=== PATIENT | female | born 1990 | race Caucasian/White ===

== ENCOUNTER 2016-12-11 15:18 | Day surgery (SDC) | payer OTHER ==
[2016-12-11] VITALS (16 sets, daily range): BP systolic 96–131; BP diastolic 65–83; PULSE 70–123; RESP 16–20; TEMP 97.3–98.6; O2SAT 95–100; Ht 167.6 cm; Wt 66.7 kg
[~2016-12-11] VITALS: Ht 167.6 cm; Wt 66.7 kg
--- NOTE | 2016-12-11 15:25 | NUR ---
Admit Ambulatory to room 109 with mother. Alert and oriented x3. O2 RA. Seda Rodriguez RN notified of patient's arrival.
--- OUTSIDE RECORDS SUMMARY | 2016-12-11 15:27 | XMS REPORT | Continuity of Care Document ---
Author Author [facility] Organization [facility] Address Unknown Phone Unavailable Allergies Active Description Code Type Severity Reaction Onset Reported/Identified Relationship to Patient Clinical Status Yes Sulfa (Sulfonamide Antibiotics) 491 3 N/A N/A Yes sulfamethoxazole 2827 1 N/A N/A Yes trimethoprim 2873 1 N/A N/A Medications Problems Date Dx Coded Attending Type Code Diagnosis Diagnosed By 11/01/2015 W S93.601A Right foot sprain, initial encounter 01/08/2016 W S93.601A Right foot sprain, initial encounter 11/20/2016 FRANNIE MACK I350 Nonrheumatic aortic (valve) stenosis 11/20/2016 FRANNIE MACK N946 Dysmenorrhea, unspecified 11/20/2016 FRANNIE MACK R102 Pelvic and perineal pain 11/20/2016 FRANNIE MACK [id number] Other halfway (current) drug therapy Procedures Code Description [place] [address] OFFICE/OUTPATIENT VISIT NEW 11/01/2015 Results Test Result Range CBC WITH PLATELET AND DIFFERENTIAL - 11/13/16 18:20 SEGS 60.3 % NRG *BASOPHILS 0.5 % NRG *EOSINOPHILS 0.8 % NRG AUTOMATED DIFF PERFORMED NRG *LYMPHOCYTES 31.2 % NRG *MONOCYTES 7.2 % NRG *ABSOLUTE BASOPHILS 0.00 10*3/uL 0.00- 0.20 *ABSOLUTE EOSINOPHILS 0.10 10*3/uL 0.00- 0.50 *ABSOLUTE LYMPHOCYTES 2.50 10*3/uL 1.00- 3.00 *ABSOLUTE MONOCYTES 0.60 10*3/uL 0.30- 1.00 *ABSOLUTE NEUTROPHILS 4.80 10*3/uL 1.80- 7.80 MPV 10.0 fL 7.4-10.4 PLATELETS 200 10*3/uL 159-386 WBC 7.9 10*3/uL 3.6-11.2 RBC 4.94 3.63-4.92 HEMOGLOBIN 14.2 11.0-14.3 HEMATOCRIT 43.0 % 31.2-41.9 MCV 87.0 fL 79.0-98.0 MCH 28.8 pg 27.0-33.0 MCHC 33.1 32.0-36.0 RDW 13.5 % 12.3-17.0 RDWSD 41.1 37.1-47.8 TEST - 11/13/16 18:20 TEST NEGATIVE NEGATIVE PROTHROMBIN TIME - 11/13/16 18:20 *INR 1.0 0.9-1.1 *PROTHROMBIN TIME 10.7 s 9.4-11.5 PARTIAL THROMBOPLASTIN TIME - 11/13/16 18:20 PARTIAL THROMBOPLASTIN TIME 27.1 s 23.0- 31.0 GFR ESTIMATION - 11/13/16 18:20 *GFR EST NON AFR MALDIVIAN 82 mL/min NRG *GRFA EST AFR AMER >90 mL/min NRG COMPREHENSIVE METABOLIC PANEL - 11/13/16 18:20 BILIFUBIN TOTAL 0.30 0.20-1.00 TOTAL PROTEIN 7.5 6.4-8.2 ALBUMIN 4.1 3.4-5.0 *GLOBULIN 3.4 2.3-3.5 *A/G RATIO 1.2 1.5-2.2 ALK PHOS 69 U/L 46-116 ALT (SGPT) 26 U/L 16-63 AST (SGOT) 15 U/L 15-37 LIPASE - 11/13/16 18:20 LIPASE 142 U/L 73-393 MAGNESIUM - 11/13/16 18:20 MAGNESIUM 2.1 1.8-2.4 URINALYSIS (CULTURE PRN) - 11/13/16 18:25 *URINE APPEARANCE CLEAR CLEAR *URINE BILIRUBIN NEGATIVE NEGATIVE *URINE BLOOD MODERATE NEGATIVE *URINE GLUCOSE NEGATIVE NEGATIVE *URINE KETONES NEGATIVE NEGATIVE *URINE LEUKOCYTES NEGATIVE NEGATIVE *URINE NITRITES NEGATIVE NEGATIVE URINE PH 6.5 5.0-8.0 *URINE PROTEIN NEGATIVE NEGATIVE URINE SPECIFIC GRAVITY 1.015 <=1.005->= 1.030 *URINE UROBILINOGEN 0.2 0.2-1.0 *URINE COLOR YELLOW STRAW/YELL/DK YELL URINE MICROSCOPIC - 11/13/16 18:25 RBC 0-1 /[HPF] 0-1 MUCOUS THREADS MODERATE /[LPF] NEGATIVE MICROSCOPIC EXAM PERFORMED PERFORMED NRG SQUAMOUS EP. CELLS FEW /[LPF] NEG-FEW CULTURE-GC PROFILE - 11/13/16 20:15 CULTURE GC PROFILE No Neisseria gonorrhoeae isolated NRG CHLAMYDIA DNA PROBE - 11/13/16 20:15 CHLAMYDIA DNA PROBE Negative Negative UR - 11/15/16 15:38 UR NEGATIVE NEGATIVE URINALYSIS (CULTURE PRN) - 11/15/16 15:38 *URINE APPEARANCE CLEAR CLEAR *URINE BILIRUBIN NEGATIVE NEGATIVE *URINE BLOOD SMALL NEGATIVE *URINE GLUCOSE NEGATIVE NEGATIVE *URINE KETONES NEGATIVE NEGATIVE *URINE LEUKOCYTES TRACE NEGATIVE *URINE NITRITES NEGATIVE NEGATIVE URINE PH 5.0 5.0-8.0 *URINE PROTEIN NEGATIVE NEGATIVE URINE SPECIFIC GRAVITY 1.025 <=1.005->= 1.030 *URINE UROBILINOGEN 0.2 0.2-1.0 *URINE COLOR YELLOW STRAW/YELL/DK YELL URINE MICROSCOPIC - 11/15/16 15:38 WBC 1-5 /[HPF] 0-5 RBC 1-5 /[HPF] 0-1 MUCOUS THREADS MANY /[LPF] NEGATIVE MICROSCOPIC EXAM PERFORMED PERFORMED NRG SQUAMOUS EP. CELLS MANY /[LPF] NEG-FEW BACTERIA MODERATE /[HPF] NEGATIVE CULTURE URINE - 11/15/16 15:38 CULTURE URINE <1,000 cfu/ml~gram positive colony types NRG CBC WITH PLATELET AND DIFFERENTIAL - 12/05/16 21:15 SEGS 58.4 % NRG *BASOPHILS 0.5 % NRG *EOSINOPHILS 1.1 % NRG AUTOMATED DIFF PERFORMED NRG *LYMPHOCYTES 33.6 % NRG *MONOCYTES 6.4 % NRG *ABSOLUTE BASOPHILS 0.00 10*3/uL 0.00- 0.20 *ABSOLUTE EOSINOPHILS 0.10 10*3/uL 0.00- 0.50 *ABSOLUTE LYMPHOCYTES 2.50 10*3/uL 1.00- 3.00 *ABSOLUTE MONOCYTES 0.50 10*3/uL 0.30- 1.00 *ABSOLUTE NEUTROPHILS 4.40 10*3/uL 1.80- 7.80 MPV 9.8 fL 7.4-10.4 PLATELETS 204 10*3/uL 159-386 WBC 7.6 10*3/uL 3.6-11.2 RBC 4.66 3.63-4.92 HEMOGLOBIN 13.7 11.0-14.3 HEMATOCRIT 40.3 % 31.2-41.9 MCV 86.5 fL 79.0-98.0 MCH 29.3 pg 27.0-33.0 MCHC 33.9 32.0-36.0 RDW 13.5 % 12.3-17.0 RDWSD 41.1 37.1-47.8 COMPREHENSIVE METABOLIC PANEL - 12/05/16 21:15 BILIFUBIN TOTAL 0.50 0.20-1.00 TOTAL PROTEIN 7.5 6.4-8.2 ALBUMIN 4.2 3.4-5.0 *GLOBULIN 3.3 2.3-3.5 *A/G RATIO 1.3 1.5-2.2 ALK PHOS 72 U/L 46-116 ALT (SGPT) 21 U/L 16-63 AST (SGOT) 19 U/L 15-37 GFR ESTIMATION - 12/05/16 21:15 *GFR EST NON AFR MALDIVIAN 75 mL/min NRG *GRFA EST AFR AMER 87 mL/min NRG UR - 12/05/16 22:15 UR NEGATIVE NEGATIVE URINALYSIS (CULTURE PRN) - 12/05/16 22:15 *URINE APPEARANCE CLEAR CLEAR *URINE BILIRUBIN NEGATIVE NEGATIVE *URINE BLOOD NEGATIVE NEGATIVE *URINE GLUCOSE NEGATIVE NEGATIVE *URINE KETONES NEGATIVE NEGATIVE *URINE LEUKOCYTES TRACE NEGATIVE *URINE NITRITES NEGATIVE NEGATIVE URINE PH 6.0 5.0-8.0 *URINE PROTEIN NEGATIVE NEGATIVE URINE SPECIFIC GRAVITY <1.005 <=1.005->= 1.030 *URINE UROBILINOGEN 0.2 0.2-1.0 *URINE COLOR YELLOW STRAW/YELL/DK YELL URINE MICROSCOPIC - 12/05/16 22:15 WBC 1-5 /[HPF] 0-5 RBC 1-5 /[HPF] 0-1 MUCOUS THREADS FEW /[LPF] NEGATIVE MICROSCOPIC EXAM PERFORMED PERFORMED NRG SQUAMOUS EP. CELLS MODERATE /[LPF] NEG- FEW BACTERIA FEW /[HPF] NEGATIVE CULTURE URINE - 12/05/16 22:15 CULTURE URINE No growth at 48 hrs NRG Encounters ACCT No. Visit Date/Time Discharge Status Pt. Type Provider Facility Loc./Unit Complaint [id number] 12/19/2014 10:22:00 2014 10:22:00 DIS Outpatient Joe LAIRD, Waqas Starr [facility] W.OCVL
--- OUTSIDE RECORDS SUMMARY | 2016-12-11 15:27 | XMS REPORT | Summary of Care ---
Author Author Hu Woody M.D. Unknown Address Unknown Phone Unavailable Care Team Providers Care Trailer Park Manager Name Role Phone Kaley Berman M.D. Unavailable Unavailable Tereza Hodges M.D. Unavailable Unavailable Kesha Woody M.D. Unavailable Unavailable Toño Berman Unavailable Unavailable Unavailable Unavailable Functional Status Name Dates Details Functional status health issues are not documented Status: Name Dates Details Cognitive status health issues are not documented Status: Problems Name Dates Details Right ankle pain (719.47, M25.571) Status: Active PPD screening test (V74.1, Z11.1) Status: Active Acute pain of left knee (719.46, M25.562) Status: Active Contusion of knee (924.11, S80.00XA) Status: Active Generalized anxiety disorder (300.02, F41.1) Status: Active Aortic stenosis (424.1, I35.0) Status: Active Thumb tendonitis (727.05, M77.8) Status: Active Recurrent acute tonsillitis (463, J03.91) Status: Active Tonsillar hypertrophy (474.11, J35.1) Status: Active Tonsillith (474.8, J35.8) Status: Active Sleep-disordered breathing (780.59, G47.30) Status: Active Menorrhagia with irregular cycle (626.2, N92.1) Status: Active Encounter for routine gynecological examination (V72.31, Z01.419) Status: Active Amenorrhea (626.0, N91.2) Status: Active Testing of female for genetic disease carrier status (V26.31, Z13.71) Status: Active Dysmenorrhea (625.3, N94.6) Status: Active Ovarian cyst (620.2, N83.209) Status: Active Preop examination (V72.84, Z01.818) Status: Active Chronic tonsillitis (474.00, J35.01) Status: Active Dehydration (276.51, E86.0) Status: Active Post-tonsillectomy pain (784.1, G89.18) Status: Active Otalgia, bilateral (388.70, H92.03) Status: Active Medications Name Dates Details Bystolic 2.5 MG Oral Tablet TAKE 1 TABLET DAILY. Toño Berman M.D. Start 16-Jul-2016 Active BuPROPion HCl ER (XL) 150 MG Oral Tablet Extended Release 24 Hour TAKE 1 TABLET BY MOUTH DAILY FOR 1 WEEK THEN TAKE 2 TABLETS BY MOUTH DAILY * Quantity: 60 Refills: 0 Toño Berman M.D. * Start 25-Sep-2016 Active BusPIRone HCl - 5 MG Oral Tablet take one to two tabs three times daily as needed for anxiety * Quantity: 1 Refills: 1 Toño Berman M.D. Start 16-Jul-2016 Active 60 Tablet Bottle Progesterone Micronized 200 MG Oral Capsule Take two tablets at HS for 5 nights every 30-35 days if no period. * Quantity: 10 Refills: 11 Jorge Hodges M.D. Start 08-Sep-2016 Active PNV Plus Multivitamin 27-1 MG Oral Tablet take one tablet by mouth every day * Quantity: 90 Refills: 3 Jorge Hodges M.D. Start 08-Sep-2016 Active Allergies and Adverse Reactions Name Dates Details Bactrim TABS (Allergy) Status: Active Past Medical History Name Dates Details History of fatigue (V13.89, Z87.898) Status: Resolved History of First-degree Perineal Laceration During Delivery Involving The Vagina (664.00) Status: Resolved History of Flu vaccine need (V04.81, Z23) Status: Resolved History of Supervision of normal (V22.1, Z34.90) Status: Resolved Procedures Procedure Dates Details History of Prior Surgical Procedure Not Done History of Tonsillectomy Procedures not documented Immunization Name Dates Details Influenza on: 12-May-2011 PPD Lot #: [id number] on: Influenza Lot #: [id number] on: 01-Jun-2016 Tdap (Adacel) Lot #: [id number] on: 08-Sep-2016 Family History Name Dates Details Family history of diabetes mellitus (V18.0, Z83.3) Status: Active Name Dates Details Family history of cardiac disorder (V17.49, Z82.49) Status: Active Family history of hyperlipidemia (V18.19, Z83.49) Status: Active Social History Name Dates Details - Status: Name Dates Details Light tobacco smoker Vital Signs Date Test Result Details 15-Oct-2016 11:05 Heart Rate 87 /min Status: Weight 151 lb Status: Physical Findings 97 Status: Comments: O2 Saturation Body Mass Index Calculated 25.13 kg/m2 Status: Body Surface Area Calculated 1.76 m2 Status: 10-Oct-2016 08:37 BP Systolic 122 mm[Hg] Status: Comments: Location: ; Position: BP Diastolic 90 mm[Hg] Status: Comments: Location: ; Position: Temperature 97.5 f Status: Comments: Method: 09-Oct-2016 09:12 BP Systolic 110 mm[Hg] Status: Comments: Location: ; Position: BP Diastolic 80 mm[Hg] Status: Comments: Location: ; Position: Temperature 98 f Status: Comments: Method: Weight 154 lb Status: Body Mass Index Calculated 25.63 kg/m2 Status: Body Surface Area Calculated 1.77 m2 Status: 28-Sep-2016 09:48 BP Systolic 108 mm[Hg] Status: BP Diastolic 80 mm[Hg] Status: Weight 159 lb Status: Body Mass Index Calculated 26.46 kg/m2 Status: Body Surface Area Calculated 1.79 m2 Status: Results Date Description Value Details 23-Sep-2016 15:13 OB Dept- Ultrasound Endovag Pelvic Sonogram Comments: Exam Date: 09/23/2016 13:38Dictation Date: 09/23/2016 15:13 XOB EV SONO 28-Sep-2016 09:32 ECG/ EKG Preop Electro CardioGram 09:45 XRay CHEST-PA & LAT Comments: Exam Date: 09/28/2016 09:15Dictation Date: 09/28/2016 09:45 X CHEST PA & LAT 10:46 PROTIME PANEL 7000 PROTIME 12.4 secs Range: 12.0-14.9 INR 0.96 10:46 CBC w/ Auto Diff 7150 WBC 4.7 K/uL Range: 4.5-11.0 RBC 4.75 mil/uL Range: 3.60-5.00 HGB 13.7 g/dL Range: 12.0-16.0 HCT 41.2 % Range: 36.0-48.0 MCV 86.9 fL Range: 80.0-99.0 MCH 28.9 pg Range: 27.3-32.5 MCHC 33.3 % Range: 32.0-36.0 RDW 13.9 % Range: 11.6-14.8 PLATELETS 233 K/uL Range: 150-400 MPV 8.5 fL Range: 6.0-11.0 %NEUTRO 47.8 % Range: 37.0-80.0 %LYMPHS 40.9 % Range: 13.0-50.0 %MONO 4.5 % Range: 0.0-12.0 %EOS 4.0 % Range: 0.0-7.0 %BASO 0.8 % Range: 0.0-2.5 %JOY 2.0 % Range: 0.0-5.0 NEUTRO 2.3 K/uL Range: 2.0-6.9 LYMPHS 1.9 K/uL Range: 0.6-3.4 MONOS 0.2 K/uL Range: 0.0-0.9 EOS 0.2 K/uL Range: 0.0-0.7 BASO 0.0 K/uL Range: 0.0-0.2 10:47 PTT 7500 PTT 28.2 secs Range: 23.0-34.7 10:52 Urinalysis, Reflex to Microscopic or Culture PRN 8005 pH 5.5 Range: 5.0-7.5 SP GRAVITY 1.025 Range: 1.010-1.030 APPEARANCE CLEAR Range: Clear COLOR YELLOW Range: Straw-Yellow PROTEIN NEGATIVE mg/dL Range: Negative-Trace GLUCOSE NEGATIVE mg/dL Range: Negative KETONE NEGATIVE mg/dL Range: Negative BILIRUB NEGATIVE Range: Negative BLOOD NEGATIVE Range: Negative UROBIL 0.2 EU/dL Range: 0.2-1.0 NITRITE NEGATIVE Range: Negative LEUK NEGATIVE Range: Negative 11:07 SERUM TEST 8020 SERUM TEST Negative Range: Negative Comments: Internal Control: Acceptable----- 11:23 Comprehensive Metabolic Panel 1212 SODIUM 142 mmol/L Range: 133-144 POTASSIUM 3.9 mmol/L Range: 3.5-5.1 CHLORIDE 104 mmol/L Range: 98-110 CARBON DIOXIDE 28.5 mmol/L Range: 23.0-33.0 ANION GAP 10 mmol/L Range: 6-16 BUN 11 mg/dL Range: 7-18 CREATININE, SERUM 1.02 mg/dL Range: 0.55-1.02 BUN:CREATININE RATIO 11 EST GFR, >60 ml/min Range: >60 EST GFR, NON-AFR SURINAMESE >60 ml/min Range: >60 Comments: EST GFR is reported in ml/min per 1.73 m2 of body surface area. ----- GLUCOSE 86 mg/dL Range: 70-100 ALK PHOSPHATASE 85 U/L Range: 46-116 TOTAL BILIRUBIN 0.30 mg/dL Range: 0.20-1.00 AST 30 U/L Range: 8-35 ALT 41 U/L Range: 14-59 ALBUMIN 4.0 g/dL Range: 3.4-5.0 TOTAL PROTEIN 7.8 g/dL Range: 6.4-8.2 A/G RATIO 1.1 units Range: 1.0-1.8 CALCIUM 9.3 mg/dL Range: 8.5-10.1 Plan of Care Name Dates Details Planned Observations Planned Goals not documented Planned Encounters Appointment; Provider: Jorge Hodges M.D. On 08-Sep-2017 13:15 Appointment; Provider: Toño Berman M.D. On 06-Nov-2016 13:15 Interventions Provided Medication Changes* Cefdinir 300 MG Oral Capsule - Completed Instructions Name Dates Details Instructions not documented Encounters Appointment; Toño Berman M.D. Encounter Diagnosis: Problem not documented On 10-Oct-2016 09:30 Appointment; Toño Berman M.D. Encounter Diagnosis: Problem not documented On 10-Oct-2016 08:45 Appointment; Toño Berman M.D. Encounter Diagnosis: Problem not documented On 09-Oct-2016 09:15 Appointment; Hu Woody M.D. Encounter Diagnosis: Problem not documented On 05-Oct-2016 09:30 Appointment; Toño Berman M.D. Encounter Diagnosis: Problem not documented On 28-Sep-2016 10:30 Appointment; Jorge Hodges M.D. Encounter Diagnosis: Problem not documented On 23-Sep-2016 14:15 Appointment; Jorge Hodges M.D. Encounter Diagnosis: Problem not documented On 08-Sep-2016 13:30 Appointment; Hu Woody M.D. Encounter Diagnosis: Problem not documented On 08-Sep-2016 08:15 Appointment; Toño Berman M.D. Encounter Diagnosis: Problem not documented On 01-Sep-2016 13:15 Appointment; Qamar Duran M.D. Encounter Diagnosis: Problem not documented On 28-Aug-2016 09:45 Appointment; Toño Berman M.D. Encounter Diagnosis: Problem not documented On 07-Aug-2016 13:45 Appointment; Toño Berman M.D. Encounter Diagnosis: Problem not documented On 28-Jul-2016 11:29 Appointment; Toño Berman M.D. Encounter Diagnosis: Problem not documented On 16-Jul-2016 09:00 Appointment; Alysha Vega Encounter Diagnosis: Problem not documented On 01-Jun-2016 09:05 Appointment; Alysha Vega Encounter Diagnosis: Problem not documented On 07:30 Appointment; Jena Cody P.T.A. Encounter Diagnosis: Problem not documented On 15:30 Appointment; Domingo Branch D.O. Encounter Diagnosis: Problem not documented On 16-Oct-2015 16:15
--- OUTSIDE RECORDS SUMMARY | 2016-12-11 15:27 | XMS REPORT | Summary of Care ---
Author Author Toño Berman M.D. Organization Unknown Address Unknown Phone Unavailable Care Team Providers Care Grain Trader Name Role Phone Kaley Berman M.D. Unavailable Unavailable Tereza Hodges M.D. Unavailable Unavailable Toño Berman Unavailable Unavailable Unavailable Functional Status Name Dates Details Functional status health issues are not documented Status: Name Dates Details Cognitive status health issues are not documented Status: Problems Name Dates Details Acute pain of left knee (719.46, M25.562) Status: Active Generalized anxiety disorder (300.02, F41.1) Status: Active Aortic stenosis (424.1, I35.0) Status: Active Sleep-disordered breathing (780.59, G47.30) Status: Active Encounter for routine gynecological examination (V72.31, Z01.419) Status: Active Amenorrhea (626.0, N91.2) Status: Active Otalgia, bilateral (388.70, H92.03) Status: Active Dysmenorrhea (625.3, N94.6) Status: Active Metrorrhagia (626.6, N92.1) Status: Active Menorrhagia (626.2, N92.0) Status: Active Nausea (787.02, R11.0) Status: Active Abdominal pain in female (789.00, R10.9) Status: Active Acute UTI (599.0, N39.0) Status: Active Female infertility (628.9, N97.9) Status: Active Menorrhagia with irregular cycle (626.2, N92.1) Status: Active Ovarian follicular cyst (620.0, N83.00) Status: Active Duplicated ureter, 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 Start 15-Jan-2011 Active Bystolic 2.5 MG Oral Tablet TAKE 1 TABLET DAILY. * Refills: 0 Toño Berman M.D. Start 16-Jul-2016 Active Progesterone Micronized 200 MG Oral Capsule Take two tablets at HS for 5 nights every 30-35 days if no period. * Quantity: 10 Refills: 11 Jorge Hodges M.D. Start 08-Sep-2016 Active PNV Plus Multivitamin 27-1 MG Oral Tablet take one tablet by mouth every day * Quantity: 90 Refills: 3 Jorge Hodges M.D. * Start 08-Sep-2016 Active Iron 325 (65 Fe) MG Oral Tablet TAKE 1 TABLET DAILY WITH FOOD. * Refills: 0 Toño Berman M.D. Start 16-Nov-2016 Active ClomiPHENE Citrate 50 MG Oral Tablet take 1/2 tablet (25 mg) day 5 through day 9 * Quantity: 5 Refills: 0 Jorge Hodges M.D. Start 24-Nov-2016 Active Allergies and Adverse Reactions Name Dates Details Bactrim TABS (Allergy) Status: Active Past Medical History Name Dates Details History of First-degree Perineal Laceration During Delivery Involving The Vagina (664.00) Status: Resolved History of Flu vaccine need (V04.81, Z23) Status: Resolved History of Supervision of normal (V22.1, Z34.90) Status: Resolved Procedures Procedure Dates Details History of Prior Surgical Procedure Not Done History of Tonsillectomy Procedures not documented Immunization Name Dates Details Influenza on: 12-May-2011 PPD Lot #: [id number] on: Influenza Lot #: [id number] on: 01-Jun-2016 Tdap (Adacel) Lot #: [id number] on: 08-Sep-2016 Family History Name Dates Details Family history of diabetes mellitus (V18.0, Z83.3) Status: Active Name Dates Details Family history of cardiac disorder (V17.49, Z82.49) Status: Active Family history of hyperlipidemia (V18.19, Z83.49) Status: Active Social History Name Dates Details - Status: Name Dates Details Light tobacco smoker Vital Signs Date Test Result Details 24-Nov-2016 15:19 BP Systolic 100 mm[Hg] Status: Comments: Location: ; Position: BP Diastolic 70 mm[Hg] Status: Comments: Location: ; Position: Weight 151 lb Status: Body Mass Index Calculated 24.37 kg/m2 Status: Body Surface Area Calculated 1.77 m2 Status: 16-Nov-2016 11:29 BP Systolic 110 mm[Hg] Status: Comments: Location: ; Position: BP Diastolic 80 mm[Hg] Status: Comments: Location: ; Position: Weight 149 lb Status: Body Mass Index Calculated 24.05 kg/m2 Status: Body Surface Area Calculated 1.76 m2 Status: 13-Nov-2016 17:20 BP Systolic 100 mm[Hg] Status: Comments: Location: ; Position: BP Diastolic 68 mm[Hg] Status: Comments: Location: ; Position: Temperature 98.1 f Status: Heart Rate 110 /min Status: Height 66 in Status: Weight 147 lb Status: Physical Findings 99 Status: Comments: O2 Saturation Body Mass Index Calculated 23.73 kg/m2 Status: Body Surface Area Calculated 1.75 m2 Status: Results Date Description Value Details 16-Nov-2016 14:10 CT AB/ PEL WITHOUT AND WITH ORAL AND IV CONTRAST Comments : Exam Date: 11/16/2016 12:47Dictation Date: 11/16/2016 14:10 XC ABD/PEL W/O & W/ 30-Nov-2016 11:07 Urinalysis, Reflex to Microscopic or Culture PRN 8005 pH 5.0 Range: 5.0-7.5 SP GRAVITY >=1.030 (Abnormal) Range: 1.010-1.030 APPEARANCE CLOUDY (Abnormal) Range: Clear COLOR DKYELLOW (Abnormal) Range: Straw-Yellow PROTEIN 30 mg/dL (Abnormal) Range: Negative-Trace GLUCOSE NEGATIVE mg/dL Range: Negative KETONE TRACE mg/dL (Abnormal) Range: Negative BILIRUB SMALL (Abnormal) Range: Negative BLOOD LARGE (Abnormal) Range: Negative UROBIL 0.2 EU/dL Range: 0.2-1.0 NITRITE NEGATIVE Range: Negative LEUK SMALL (Abnormal) Range: Negative 11:07 Urine Microscopic UMIC WBC 3-5 /HPF Range: 0-5 RBC TNTC /HPF (Abnormal) Range: 0-2 MUCUS 2+ /LPF Range: Negative-2+ EPITH 0-2 /HPF Range: 0-10 04-Dec-2016 10:52 VITAMIN B12 3606 VITAMIN B12 320 pg/mL Range: 211-911 10:52 FERRITIN 3025 FERRITIN 94 ng/mL Range: 10-291 Plan of Care Name Dates Details Planned Observations Planned Goals not documented Planned Encounters Appointment; Provider: Jorge Hodges M.D. On 08-Sep-2017 13:15 Appointment; Provider: Sid Streeter M.D. On 11-Dec-2016 12:45 Interventions Provided Labs/Procedures/Imaging* FERRITIN 3025; Done: Dec 04 2016 10:10AM * VITAMIN B12 3606; Done: Dec 04 2016 10:10AM Instructions Name Dates Details Instructions not documented Encounters Appointment; Jorge Hodges M.D. Encounter Diagnosis: Problem not documented On 24-Nov-2016 15:15 Appointment; Toño Berman M.D. Encounter Diagnosis: Problem not documented On 16-Nov-2016 11:30 Appointment; Domingo Branch D.O. Encounter Diagnosis: Problem not documented On 13-Nov-2016 17:04 Appointment; Toño Berman M.D. Encounter Diagnosis: Problem not documented On 13-Nov-2016 13:00 Appointment; Maycol Huynh M.A.|C.C.CDeanne-A Encounter Diagnosis: Problem not documented On 15-Oct-2016 11:15 Appointment; Hu Woody M.D. Encounter Diagnosis: Problem not documented On 15-Oct-2016 10:45 Appointment; Toño Berman M.D. Encounter Diagnosis: Problem [...] Encounter Diagnosis: Problem not documented On 16-Oct-2015 16:15"
--- OUTSIDE RECORDS SUMMARY | 2016-12-11 15:27 | XMS REPORT | Summary of Care ---
Author Author Jorge Hodges M.D. Unknown Address Unknown Phone Unavailable Care Team Providers Care Mentally Retarded Teacher Name Role Phone Kaley Berman M.D. Unavailable [...] Active Thumb tendonitis (727.05, M77.8) Status: Active Sinusitis (473.9, J32.9) Status: Active Chronic tonsillitis (474.00, J35.01) Status: Active Recurrent acute tonsillitis (463, J03.91) Status: Active Tonsillar hypertrophy (474.11, J35.1) Status: Active Tonsillith (474.8, J35.8) Status: Active Sleep-disordered breathing (780.59, G47.30) Status: Active Menorrhagia with irregular cycle (626.2, N92.1) Status: Active Encounter for routine gynecological examination (V72.31, Z01.419) Status: Active Amenorrhea (626.0, N91.2) Status: Active Testing of female for genetic disease carrier status (V26.31, Z31.430) Status: Active Preop examination (V72.84, Z01.818) Status: Active Dysmenorrhea (625.3, N94.6) Status: Active Ovarian cyst (620.2, N83.209) Status: Active Medications Name Dates Details Bystolic 2.5 MG Oral Tablet TAKE 1 TABLET DAILY. Toño Berman M.D. Start 16-Jul-2016 Active BuPROPion HCl ER (XL) 150 MG Oral Tablet Extended Release 24 Hour Take one tab daily * Quantity: 1 Refills: 1 Toño Berman M.D. Start 16-Jul-2016 Active 60 Tablet Extended Release 24 Hour Bottle BusPIRone HCl - 5 MG Oral Tablet take one to two tabs three times daily as needed for anxiety * Quantity: 1 Refills: 1 Toño Berman M.D. Start 16-Jul-2016 Active 60 Tablet Bottle Amoxicillin-Pot Clavulanate 875-125 MG Oral Tablet TAKE 1 TABLET EVERY 12 HOURS WITH MEALS UNTIL GONE. * Quantity: 24 Refills: 0 Toño Berman M.D. Start 01-Sep-2016 Active PredniSONE 10 MG Oral Tablet take 3 tabs daily for 2 days, 2 tabs daily for 2 days, 1 daily for 2 days * Quantity: 1 Refills: 0 Toño Berman M.D. Start 01-Sep-2016 Active 12 Tablet Bottle Progesterone Micronized 200 MG Oral Capsule Take two tablets at HS for 5 nights every 30-35 days if no period. * Quantity: 10 Refills: 11 Jorge Hodges M.D. Start 08-Sep-2016 Active PNV Plus Multivitamin 27-1 MG Oral Tablet take one tablet by mouth every day * Quantity: 90 Refills: 3 Jorge Hodges M.D. Start 08-Sep-2016 Active TraMADol HCl - 50 MG Oral Tablet TAKE ONE TO TWO TABLETS BY MOUTH EVERY 4 TO 6 HOURS NEEDED * Quantity: 10 Refills: 0 Jorge Hodges M.D. Start 17-Sep-2016 Active Allergies and Adverse Reactions Name Dates [...] History of Prior Surgical Procedure Not Done ECG/ EKG Preop Pendin09-Sep-2016 SERUM TEST 8020 Ordered: 09-Sep-2016 Urinalysis, Reflex to Microscopic or Culture PRN 8005 Ordered: 09-Sep-2016 CBC w/ Auto Diff 7150 Ordered: 09-Sep-2016 Comprehensive Metabolic Panel 1212 Ordered: 09-Sep-2016 PROTIME PANEL 7000 Ordered: 09-Sep-2016 PTT 7500 Ordered: 09-Sep-2016 XRay CHEST-PA & LAT Ordered: 09-Sep-2016 OB Dept- Ultrasound Endovag Pelvic Sonogram Ordered: 09-Sep-2016 Immunization Name Dates Details Influenza on: 12-May-2011 PPD Lot #: [id number] on: Influenza Lot #: [id number] on: 01-Jun-2016 Tdap (Adacel) Lot #: [id number] on: 08-Sep-2016 Family History Name Dates Details Family history of diabetes mellitus (V18.0, Z83.3) Status: Active Name Dates Details Family history of cardiac disorder (V17.49, Z82.49) Status: Active Family history of hyperlipidemia (V18.19, Z83.49) Status: Active Social History Name Dates Details - Status: Name Dates Details Light tobacco smoker Vital Signs Date Test Result Details 08-Sep-2016 13:22 BP Systolic 118 mm[Hg] Status: Comments: Location: ; Position: BP Diastolic 86 mm[Hg] Status: Comments: Location: ; Position: Height 65 in Status: Weight 159 lb Status: Body Mass Index Calculated 26.46 kg/m2 Status: Body Surface Area Calculated 1.79 m2 Status: 08-Sep-2016 08:16 Heart Rate 108 /min Status: Weight 159 lb Status: Physical Findings 98 Status: Comments: O2 Saturation 01-Sep-2016 13:19 BP Systolic 114 mm[Hg] Status: Comments: Location: ; Position: BP Diastolic 86 mm[Hg] Status: Comments: Location: ; Position: Weight 159 lb Status: 28-Aug-2016 10:05 BP Systolic 112 mm[Hg] Status: BP Diastolic 76 mm[Hg] Status: Temperature 98.1 f Status: Heart Rate 82 /min Status: Comments: Location: ; Physical Findings 20 Status: Comments: Respiration Weight 159 lb Status: Physical Findings 97 Status: Comments: O2 Saturation Results Date Description Value Details 08-Sep-2016 15:53 Iron Panel with TIBC 1612 IRON 56 ug/dL Range: 50-170 TOTAL IRON BIND. CAPACITY 266 ug/dL Range: 250-450 % IRON SATURATION 21 % Range: 20-55 16:16 THYROID STIM. HORMONE 3602 Comments: Items were attached to this order : Misc Kit THYROID STIM. HORMONE 2.252 uIU/mL Range: 0.550-4.780 Comments: No established reference ranges for infants and children <2 years of age----- Plan of Care Name Dates Details Planned Observations Planned Goals not documented Planned Encounters Appointment; Provider: Jorge Hodges M.D. On 08-Sep-2017 13:15 Appointment; Provider: Toño Berman M.D. On 06-Nov-2016 13:15 Appointment; Provider: Hu Woody M.D. On 05-Oct-2016 09:30 Appointment; Provider: Toño Berman M.D. On 28-Sep-2016 10:30 Instructions Name Dates Details Instructions not documented [...]
--- OUTSIDE RECORDS SUMMARY | 2016-12-11 15:27 | XMS REPORT | Summary of Care ---
Author Author Toño Berman M.D. Organization Unknown Address Unknown Phone Unavailable Care Team Providers Care Manager Oncology Name Role Phone Kaley Berman M.D. Unavailable [...] N83.209) Status: Active Medications Name Dates Details BuPROPion HCl ER (XL) 150 MG Oral Tablet Extended Release 24 Hour TAKE 1 TABLET BY MOUTH DAILY FOR 1 WEEK THEN TAKE 2 TABLETS BY MOUTH DAILY Quantity: 60 Toño Berman M.D. Start 25-Sep-2016 Active Amoxicillin-Pot Clavulanate 875-125 MG Oral Tablet TAKE [...] M.D. Start 01-Sep-2016 Active 12 Tablet Bottle TraMADol HCl - 50 MG Oral Tablet TAKE ONE TO TWO TABLETS BY MOUTH EVERY 4 TO 6 HOURS NEEDED * Quantity: 10 Refills: 0 Jorge Hodges M.D. Start 17-Sep-2016 Active BusPIRone HCl - 5 MG Oral Tablet take one to two tabs three times daily as needed for anxiety * Quantity: 1 Refills: 1 Toño Berman M.D. Start 16-Jul-2016 Active 60 Tablet Bottle Bystolic 2.5 MG Oral Tablet TAKE 1 TABLET DAILY. * Refills: 0 Toño Berman M.D. Start 16-Jul-2016 Active PNV Plus Multivitamin 27-1 MG Oral Tablet take one tablet by mouth every day * Quantity: 90 Refills: 3 Tracie Ott, Jorge Perez Start 08-Sep-2016 Active Progesterone Micronized 200 MG Oral Capsule Take two tablets at HS for 5 nights every 30-35 days if no period. * Quantity: 10 Refills: 11 Jorge Hodges M.D. Start 08-Sep-2016 Active Allergies [...] Procedure Not Done ECG/ EKG Preop Pendin09-Sep-2016 XRay CHEST-PA & LAT Ordered: 09-Sep-2016 Immunization Name Dates Details Influenza on: 12-May-2011 PPD Lot #: [id number] on: Influenza Lot #: [id number] on: 01-Jun-2016 Tdap (Adacel) Lot #: [id number] on: 08-Sep-2016 Family History Name Dates Details [...] infants and children <2 years of age----- 23-Sep-2016 15:13 OB Dept- Ultrasound Endovag Pelvic Sonogram Comments: Exam Date: 09/23/2016 13:38Dictation Date: 09/23/2016 15:13 XOB EV SONO Plan of Care Name Dates Details Planned Observations XRay CHEST-PA & LAT On 28-Sep-2016 Intent ECG/ EKG Preop On 28-Sep-2016 Intent Planned Goals not documented Planned Encounters Appointment; [...]
--- OUTSIDE RECORDS SUMMARY | 2016-12-11 15:27 | XMS REPORT | Summary of Care ---
Author Author Qamar Duran M.D. Unknown Address [address] [place], [place] [id number] Phone Unavailable Care Team Providers Care Principal Scientist Name Role Phone Kaley Berman M.D. Unavailable Unavailable Jose A Duran M.D. Unavailable Unavailable Toño Berman Unavailable Unavailable Unavailable Unavailable Functional Status Name Dates Details Functional status health issues are not documented Status: Name Dates Details Cognitive status health issues are not documented Status: Problems Name Dates Details Supervision of normal (V22.1, Z34.90) Status: Active Right ankle pain (719.47, M25.571) Status: Active Acute foot pain, right (729.5, M79.671) Status: Active Sprain of left foot (845.10, S93.602A) Status: Active PPD screening test (V74.1, Z11.1) Status: Active Flu vaccine need (V04.81, Z23) Status: Active Acute pain of left knee (719.46, M25.562) Status: Active Contusion of knee (924.11, S80.00XA) Status: Active Generalized anxiety disorder (300.02, F41.1) Status: Active Sinusitis (473.9, J32.9) Status: Active Acute bronchitis (466.0, J20.9) Status: Active Aortic stenosis (424.1, I35.0) Status: Active Medications Name Dates Details Azithromycin 250 MG Oral Tablet TAKE 2 TABLETS ON DAY 1 THEN TAKE 1 TABLET A DAY FOR 4 DAYS. Quantity: 6 Qamar Duran M.D. Start Active Bystolic 2.5 MG Oral Tablet TAKE 1 TABLET DAILY. * Refills: 0 Toño Berman M.D. Start 16-Jul-2016 Active BuPROPion [...] Quantity: 1 Refills: 1 Toño Berman M.D. * Start 16-Jul-2016 Active 60 Tablet Bottle TraMADol HCl - 50 MG Oral Tablet 1/2 to 1 tab every 6 hours as needed for PAIN * Quantity: 30 Refills: 0 Toño Berman M.D. * Start 28-Jul-2016 Active Benzonatate 100 MG Oral Capsule TAKE 1 CAPSULE Every 4 hours PRN cough Do not take no more than 3 times a day. * Quantity: 20 Refills: 0 Roger Ott Qamar Jose A Perez Start 28-Aug-2016 Active Allergies and Adverse Reactions Name Dates Details Bactrim TABS (Allergy) Status: Active Past Medical History Name Dates Details Supervision of normal (V22.1, Z34.90) Status: Active History of First-degree Perineal Laceration During Delivery Involving The Vagina (664.00) Status: Resolved History of Supervision of normal (V22.1, Z34.90) Status: Resolved Procedures Procedure Dates Details Procedures not documented Immunization Name Dates Details Influenza on: 12-May-2011 PPD Lot #: [id number] on: Influenza Lot #: [id number] on: 01-Jun-2016 Social History Name Dates Details - Status: Name Dates Details Light tobacco smoker Vital Signs Date Test Result Details 28-Aug-2016 10:05 BP Systolic 112 mm[Hg] Status: Comments: Location: ; Position: BP Diastolic 76 mm[Hg] Status: Comments: Location: ; Position: Temperature 98.1 f Status: Heart Rate 82 /min Status: Physical Findings 20 Status: Comments: Respiration Weight 159 lb Status: Physical Findings 97 Status: Comments: O2 Saturation 07-Aug-2016 13:39 BP Systolic 122 mm[Hg] Status: Comments: Location: ; Position: BP Diastolic 64 mm[Hg] Status: Comments: Location: ; Position: Weight 160 lb Status: Results Date Description Value Details Results not documented Plan of Care Name Dates Details Planned Observations Planned Goals not documented Planned Encounters Appointment; Provider: Toño Berman M.D. On 06-Nov-2016 13:15 Appointment; Provider: Hu Woody M.D. On 08-Sep-2016 08:15 Interventions Provided Medication Changes* Azithromycin 250 MG Oral Tablet - Renew * Benzonatate 100 MG Oral Capsule - Start Instructions Name Dates Details Instructions not documented [...]
--- OUTSIDE RECORDS SUMMARY | 2016-12-11 15:27 | XMS REPORT ---
Author Author Cheli Leos Organization [employer] Address Unknown Phone Unavailable Care Team Providers Care Inbound Sales Representative Name Role Phone Cheli Leos CP Unavailable Allergies, Adverse Reactions, Alerts Substance Reaction Event Type Bactrim Info Not Available Drug Allergy Problems Problem Type Condition ICD-9 Code Onset Dates Condition Status Assessment Aortic stenosis 424.1 Active Assessment Ovarian cyst 620.2 Active Problem Aortic stenosis 424.1 Active Medications No Known Medications Procedures Procedure Coding System Code Date OFFICE VISIT EST PATIENT LEVEL 3 CPT-4 29247 Oct 17, 2014 Vital Signs Date/Time: Oct 17, 2014 BMI 28.34 Index Weight 160.0 lbs Height 63 in Blood Pressure Diastolic 78 mm Hg Blood Pressure Systolic 112 mm Hg Cardiac Monitoring Heart Rate 80 /min Temperature 98.0 F Respiratory Rate 16 /min Results No Known Results Summary Purpose [employer] Submission
--- OUTSIDE RECORDS SUMMARY | 2016-12-11 15:27 | XMS REPORT | Summary of Care ---
Author Author [facility] Organization [facility] Address [address] [place] [address] Phone Care Team Providers Care Licensed Final Expense Agents Name Role Phone Cullen Ott, Kaley Unavailable Unavailable Fredo Ott, User Unavailable Unavailable Tracie Ott, Tereza Unavailable Unavailable Annalise Ott, A Unavailable Unavailable Toño Berman Unavailable Unavailable Unavailable [...] disease carrier status (V26.31, Z31.430) Status: Active Dysmenorrhea (625.3, N94.6) Status: Active Ovarian cyst (620.2, N83.209) Status: Active Chronic tonsillitis (474.00, J35.01) Status: Active Preop examination (V72.84, Z01.818) Status: Active Medications Name Dates Details Bystolic 2.5 MG Oral Tablet TAKE 1 TABLET DAILY. Toño Berman M.D. * Start 16-Jul-2016 Active BuPROPion HCl ER (XL) [...] * Start 16-Jul-2016 Active 60 Tablet Bottle Progesterone Micronized 200 MG Oral Capsule Take two tablets at HS for 5 nights every 30-35 days if no period. * Quantity: 10 Refills: 11 Jorge Hodges M.D. Start 08-Sep-2016 Active PNV Plus Multivitamin 27-1 MG Oral Tablet take one tablet by mouth every day * Quantity: 90 Refills: 3 Jorge Hodges M.D. Start 08-Sep-2016 Active Oxycodone-Acetaminophen 5-325 MG Oral Tablet TAKE 1 TO 2 TABLETS EVERY 4 TO 6 HOURS NEEDED FOR PAIN. * Quantity: 30 Refills: 0 Hu Woody M.D. Start 05-Oct-2016 End 10-Oct-2016 Active Cefdinir 300 MG Oral Capsule TAKE 2 CAPSULE Daily * Quantity: 20 Refills: 0 Hu Woody M.D. Start 07-Oct-2016 End 17-Oct-2016 Active Allergies and Adverse Reactions Name Dates [...] History of Prior Surgical Procedure Not Done Procedures not documented Immunization Name Dates Details Influenza on: 12-May-2011 PPD Lot #: [id number] on: Influenza Lot #: [id number] on: 01-Jun-2016 Tdap (Adacel) Lot #: [id number] on: 08-Sep-2016 Family History Name Dates Details Family history of diabetes mellitus (V18.0, Z83.3) Status: Active Name Dates Details Family history of cardiac disorder (V17.49, Z82.49) Status: Active Family history of hyperlipidemia (V18.19, Z83.49) Status: Active Social History Name Dates Details - Status: Name Dates Details Light tobacco smoker Vital Signs Date Test Result Details 28-Sep-2016 09:48 BP Systolic 108 mm[Hg] Status: Comments: Location: ; Position: BP Diastolic 80 mm[Hg] Status: Comments: Location: ; Position: Weight 159 lb Status: Body Mass Index Calculated 26.46 kg/m2 Status: Body Surface Area Calculated 1.79 m2 Status: 08-Sep-2016 13:22 BP Systolic 118 mm[Hg] Status: Comments: Location: ; Position: BP Diastolic 86 mm[Hg] Status: Comments: Location: ; Position: Height 65 in Status: Weight 159 lb Status: Body Mass Index Calculated 26.46 kg/m2 Status: Body Surface Area Calculated 1.79 m2 Status: 08-Sep-2016 08:16 Heart Rate 108 /min Status: Comments: Location: ; Weight 159 lb Status: Physical Findings 98 Status: Comments: O2 Saturation Results Date Description Value Details 08-Sep-2016 15:53 Iron Panel with TIBC 1612 IRON 56 ug/dL Range: 50-170 TOTAL IRON BIND. CAPACITY 266 ug/dL Range: 250-450 % IRON SATURATION 21 % Range: 20-55 16:16 THYROID STIM. HORMONE 3602 Comments: Items were attached to this order : Rawlemon Kit THYROID STIM. HORMONE 2.252 uIU/mL Range: [...] >60 ml/min Range: >60 EST GFR, NON-AFR IRAQI >60 ml/min Range: >60 Comments: EST GFR [...] Provider: Toño Berman M.D. On 06-Nov-2016 13:15 Instructions Name Dates Details Instructions not documented Encounters Appointment; Hu Woody M.D. Encounter Diagnosis: Problem not documented On 05-Oct-2016 09:30 Appointment; Toño Berman M.D. Encounter Diagnosis: Problem not documented On 28-Sep-2016 10:30 Appointment; Jorge Hogdes M.D. Encounter Diagnosis: Problem not documented On [...] not documented On 07-Aug-2016 13:45 Appointment; Toño Breman M.D. Encounter Diagnosis: Problem not documented On [...]
--- OUTSIDE RECORDS SUMMARY | 2016-12-11 15:27 | XMS REPORT ---
Author Author GENERATED, SYSTEM Organization Unknown Address Unknown Phone Unavailable Care Team Providers Care Head Mva Reactor Operator Name Role Phone [facility] PP Unavailable Reason For Visit Chief Complaint FEELS BAD Social History Functional Status Vital Signs Results Microbiology from 11/02/2014 4:30 PM* CULTURE GROUP A STREP (Preliminary Result) Specimen Number: [id number] Sample Collection Date/Time: 11/02/2014 4:30 PM Specimen Source: Throat * GROUP A STREP, RAPID AG Specimen Number: [id number] Sample Collection Date/Time: 11/02/2014 4:30 PM Specimen Source: Throat Problems Encounter Diagnosis No relevant problems exist. Additional Problems * Abdominal Pain in Status:Active. * False Labor Status:Active. Encounters Encounter Diagnosis No relevant problems exist. Plan of Care Procedures * Completed , on 02/16/2010 12:00 AM * Completed , on 02/08/2009 12:00 AM * Completed , on 01/26/2009 12:00 AM Immunizations No immunizations administered or ordered. Hospital Course Hospital Discharge Instructions Allergies, Adverse Reactions, Alerts * Sulfa (Sulfonamide Antibiotics) causes Rash. * Latex Allergy has not been assessed. * IV Contrast Allergy has not been assessed. Medication Medication reconciliation has not been performed.
--- OUTSIDE RECORDS SUMMARY | 2016-12-11 15:28 | XMS REPORT | Summary of Care ---
Author Author Toño Berman M.D. Organization Unknown Address Unknown Phone Unavailable Care Team Providers Care Modeling Instructor Name Role Phone Kaley Berman M.D. Unavailable [...] Active Otalgia, bilateral (388.70, H92.03) Status: Active Metrorrhagia (626.6, N92.1) Status: Active Menorrhagia (626.2, N92.0) Status: Active Dysmenorrhea (625.3, N94.6) Status: Active Nausea (787.02, R11.0) Status: Active Abdominal pain in female (789.00, R10.9) Status: Active Acute UTI (599.0, N39.0) Status: Active Medications Name Dates Details Ondansetron HCl - 8 MG Oral Tablet one po every 6 hours prn Quantity: 20 Jorge Hodges M.D. Start 15-Jan-2011 Active Bystolic 2.5 MG Oral Tablet TAKE 1 TABLET DAILY. * Refills: 0 Toño Berman M.D. Start 16-Jul-2016 Active BusPIRone HCl - 5 MG Oral Tablet take one to two tabs three times daily as needed for anxiety * Quantity: 1 Refills: 1 Toño Berman M.D. Start 16-Jul-2016 Active 60 Tablet Bottle Progesterone Micronized 200 MG Oral Capsule Take two tablets at HS for 5 nights every 30-35 days if no period. * Quantity: 10 Refills: 11 Jorge Hodges M.D. * Start 08-Sep-2016 Active PNV Plus Multivitamin 27-1 MG Oral Tablet take one tablet by mouth every day * Quantity: 90 Refills: 3 Jorge Hodges M.D. * Start 08-Sep-2016 Active Iron 325 (65 Fe) MG Oral Tablet TAKE 1 TABLET DAILY WITH FOOD. * Refills: 0 Cullen Ott, Toño Roche * Start 16-Nov-2016 Active Allergies and Adverse Reactions Name Dates [...] Details Influenza on: 12-May-2011 PPD Lot #: [id number] on: Influenza Lot #: [id number] on: 01-Jun-2016 Tdap (Adacel) Lot #: [id number] on: 08-Sep-2016 Family History Name Dates Details Family history of diabetes mellitus (V18.0, Z83.3) Status: Active Name Dates Details Family history of cardiac disorder (V17.49, Z82.49) Status: Active Family history of hyperlipidemia (V18.19, Z83.49) Status: Active Social History Name Dates Details - Status: Name Dates Details Light tobacco smoker Vital Signs Date Test Result Details 16-Nov-2016 11:29 BP Systolic 110 mm[Hg] Status: [...] 11/16/2016 14:10 XC ABD/PEL W/O & W/ Plan of Care Name Dates Details Planned Observations Planned Goals not documented Planned Encounters Appointment; Provider: Jorge Hodges M.D. On 08-Sep-2017 13:15 Appointment; Provider: Jorge Hodges M.D. On 24-Nov-2016 15:15 Instructions Name Dates Details Instructions not documented Encounters Appointment; Domingo Branch D.O. Encounter Diagnosis: Problem [...]
--- OUTSIDE RECORDS SUMMARY | 2016-12-11 15:28 | XMS REPORT | Summary of Care ---
Author Author Domingo Branch D.O. Organization Unknown Address [address], [place] [id number] Phone Unavailable Care Team Providers Care Academic Tutor Name Role Phone Kesha Leos PP Unavailable Unavailable Unavailable Functional Status Functional Status Health Issues* Name Dates Details Functional status health issues are not documented Status: Cognitive Status Health Issues* Name Dates Details Cognitive status health issues are not documented Status: Problems Name Dates Details Aortic stenosis (747.22, Q25.3) Status: Active Contusion of knee (924.11, S80.00XA) Status: Active Supervision of normal (V22.1, Z34.90) Status: Active Right ankle pain (719.47, M25.571) Status: Active Acute foot pain, right (729.5, M79.671) Status: Active Medications Name Dates Details No Reported Medications Active Allergies and Adverse Reactions Name Dates Details Bactrim TABS Status: Active Past Medical History Name Dates Details Supervision of normal (V22.1, Z34.90) Status: Active History of First-degree Perineal Laceration During Delivery Involving The Vagina (664.00) Status: Resolved History of Supervision of normal (V22.1, Z34.90) Status: Resolved Procedures Procedure Dates Details XRay ANKLE-Right Ordered:16-Oct-2015 XRay FOOT-Right Ordered:16-Oct-2015 Immunization Name Dates Details Influenza Administered on:12-May-2011 Social History Smoking Status* Unknown if ever smoked Vital Signs Date Test Result Details 16-Oct-2015 16:23 BP Systolic 135 mm[Hg] Status: BP Diastolic 89 mm[Hg] Status: Temperature 98.6 f Status: Heart Rate 115 /min Status: O2 SAT 98 % Status: Results Date Description Value Details Results not documented Plan of Care Planned Observations* Name Dates Details Planned Goals not documented Goal Planned Encounters* Appointment; Provider: Enedina Catherine On 10:30 Instructions * Instructions not documented Encounters Appointment; Domingo Branch Encounter Diagnosis: Problem not documented On 16-Oct-2015 16:15
--- OUTSIDE RECORDS SUMMARY | 2016-12-11 15:28 | XMS REPORT | Summary of Care ---
Author Author Hu Woody M.D. Unknown Address Unknown Phone Unavailable Care Team Providers Care Medical Data Entry Clerk Name Role Phone Kaley Berman M.D. Unavailable Unavailable Kesha Woody M.D. Unavailable [...] Generalized anxiety disorder (300.02, F41.1) Status: Active Acute bronchitis (466.0, J20.9) Status: Active Aortic stenosis (424.1, I35.0) Status: Active Thumb tendonitis (727.05, M77.8) Status: Active Sinusitis (473.9, J32.9) Status: Active Chronic tonsillitis (474.00, J35.01) Status: Active Recurrent acute tonsillitis (463, J03.91) Status: Active Tonsillar hypertrophy (474.11, J35.1) Status: Active Tonsillith (474.8, J35.8) Status: Active Sleep-disordered breathing (780.59, G47.30) Status: Active Medications Name Dates Details Bystolic 2.5 MG Oral Tablet TAKE 1 TABLET DAILY. Toño Berman M.D. * Start 16-Jul-2016 Active BuPROPion HCl ER (XL) 150 MG Oral Tablet Extended Release 24 Hour Take one tab daily * Quantity: 1 Refills: 1 Toño Berman M.D. * Start 16-Jul-2016 Active 60 Tablet Extended Release 24 Hour Bottle BusPIRone HCl - 5 MG Oral Tablet take one to two tabs three times daily as needed for anxiety * Quantity: 1 Refills: 1 Toño Berman M.D. * Start 16-Jul-2016 Active 60 Tablet Bottle Amoxicillin-Pot Clavulanate 875-125 MG Oral Tablet TAKE 1 TABLET EVERY 12 HOURS WITH MEALS UNTIL GONE. * Quantity: 24 Refills: 0 Cullen Ott Toño Roche * Start 01-Sep-2016 Active PredniSONE 10 MG Oral Tablet take 3 tabs daily for 2 days, 2 tabs daily for 2 days, 1 daily for 2 days * Quantity: 1 Refills: 0 Toño Berman M.D. * Start 01-Sep-2016 Active 12 Tablet Bottle Allergies and Adverse Reactions Name Dates Details Bactrim TABS (Allergy) Status: Active Past Medical History Name Dates Details Supervision of normal (V22.1, Z34.90) Status: Active History of fatigue (V13.89, Z87.898) Status: Resolved History of First-degree Perineal Laceration During Delivery Involving The Vagina (664.00) Status: Resolved History of Supervision of normal (V22.1, Z34.90) Status: Resolved Procedures Procedure Dates Details History of Prior Surgical Procedure Not Done Procedures not documented Immunization Name Dates Details Influenza on: 12-May-2011 PPD Lot #: [id number] on: Influenza Lot #: [id number] on: 01-Jun-2016 Family History Name Dates Details Family history of diabetes mellitus (V18.0, Z83.3) Status: Active Name Dates Details Family history of cardiac disorder (V17.49, Z82.49) Status: Active Family history of hyperlipidemia (V18.19, Z83.49) Status: Active Social History Name Dates Details - Status: Name Dates Details Light tobacco smoker Vital Signs Date Test Result Details 08-Sep-2016 08:16 Heart Rate 108 /min Status: [...] O2 Saturation Results Date Description Value Details Results not documented Plan of Care Name Dates Details Planned Observations Planned Goals not documented Planned Encounters Appointment; Provider: Toño Berman M.D. On 06-Nov-2016 13:15 Appointment; Provider: Hu Woody M.D. On 18-Sep-2016 10:30 Appointment; Provider: Toño Berman M.D. On 10-Sep-2016 13:00 Appointment; Provider: Jorge Hodges M.D. On 08-Sep-2016 13:30 Interventions Provided Medication Changes* Benzonatate 100 MG Oral Capsule - Completed Instructions Name [...]
--- OUTSIDE RECORDS SUMMARY | 2016-12-11 15:28 | XMS REPORT ---
Author Author Cheli Leos Organization [employer] Address Unknown Phone Unavailable Care Team Providers Care Post Office Manager Name Role Phone Cheli Leos CP Unavailable Allergies No Known Allergies Problems Problem Type Condition ICD-9 Code Onset Dates Condition Status Assessment Encounter for pre-operative laboratory testing V72.84 Active Problem Aortic stenosis 424.1 Active Medications No Known Medications Procedures Procedure Coding System Code Date ROUTINE VENIPUNCTURE CPT-4 13169 January 17, 2015 COMPLETE CBC WAUTO DIFF WBC CPT-4 59611 January 17, 2015 Results No Known Results Summary Purpose eClinicalWorks Submission
--- OUTSIDE RECORDS SUMMARY | 2016-12-11 15:28 | XMS REPORT ---
Author Author GENERATED, SYSTEM Organization Unknown Address Unknown Phone Unavailable Care Team Providers Care Faceter Name Role Phone MD CECILE, ASHLEY PP [phone] Reason For Visit Chief Complaint DYSMENORRHEA Social History Functional Status Vital Signs Results Chemistry from 11/13/2016 6:20 PMSODIUM 142 MMOL/L (136-145 MMOL/L) POTASSIUM 3.8 MMOL/L (3.5-5.1 MMOL/L) CHLORIDE 105 MMOL/L (98-107 MMOL/L) TCO2 26.5 MMOL/L (21.0-32.0 MMOL/L) *ANION GAP 10.5 MMOL/L (8.0-16.0 MMOL/L) BUN 15 MG/DL (7-18 MG/DL) CREATININE 0.95 MG/DL (0.55-1.02 MG/DL) *BUN/CREATININE RATIO 15.8 (9.1-17.0 ) GLUCOSE 99 MG/DL (65-99 MG/DL) *GFR EST NON AFR [place] 82 ML/MIN *GFR EST AFR AMER >90 ML/MIN CALCIUM 9.2 MG/DL (8.5-10.1 MG/DL) BILIRUBIN TOTAL 0.30 MG/DL (0.20-1.00 MG/DL) TOTAL PROTEIN 7.5 GM/DL (6.4-8.2 GM/DL) ALBUMIN 4.1 GM/DL (3.4-5.0 GM/DL) *GLOBULIN 3.4 GM/DL (2.3-3.5 GM/DL) *A/G RATIO 1.2 MG/DL L (1.5-2.2 MG/DL) ALK PHOS 69 U/L (46-116 U/L) ALT (SGPT) 26 U/L (16-63 U/L) AST (SGOT) 15 U/L (15-37 U/L) MAGNESIUM 2.1 MG/DL (1.8-2.4 MG/DL) LIPASE 142 U/L (73-393 U/L) TEST NEGATIVE (NEGATIVE ) Hematology from 11/13/2016 6:20 PMWBC 7.9 X10e3/UL (3.6-11.2 X10e3/UL) RBC 4.94 X10e6/UL H (3.63-4.92 X10e6/UL) HEMOGLOBIN 14.2 G/DL (11.0-14.3 G/DL) HEMATOCRIT 43.0 % H (31.2-41.9 %) *MCV 87.0 FL (79.0-98.0 FL) *MCH 28.8 PG (27.0-33.0 PG) *MCHC 33.1 G/DL (32.0-36.0 G/DL) *RDW 13.5 % (12.3-17.0 %) *RDWSD 41.1 (37.1-47.8 ) PLATELET 200 X10e3/UL (159-386 X10e3/UL) *MPV 10.0 FL (7.4-10.4 FL) AUTOMATED DIFF PERFORMED SEGS 60.3 % *LYMPHOCYTES 31.2 % *MONOCYTES 7.2 % *EOSINOPHILS 0.8 % *BASOPHILS 0.5 % *ABSOLUTE NEUTROPHILS 4.80 X10e3/UL (1.80-7.80 X10e3/UL) *ABSOLUTE LYMPHOCYTES 2.50 X10e3/UL (1.00-3.00 X10e3/UL) *ABSOLUTE MONOCYTES 0.60 X10e3/UL (0.30-1.00 X10e3/UL) *ABSOLUTE EOSINOPHILS 0.10 X10e3/UL (0.00-0.50 X10e3/UL) *ABSOLUTE BASOPHILS 0.00 X10e3/UL (0.00-0.20 X10e3/UL) Urinalysis from 11/13/2016 6:25 PM*URINE COLOR YELLOW (STRAW/YELL/DK YELL ) *URINE APPEARANCE CLEAR (CLEAR ) URINE PH 6.5 (5.0-8.0 ) URINE SPECIFIC GRAVITY 1.015 (<=1.005->=1.030 ) *URINE GLUCOSE NEGATIVE MG/DL (NEGATIVE MG/DL) *URINE BILIRUBIN NEGATIVE (NEGATIVE ) *URINE KETONES NEGATIVE MG/DL (NEGATIVE MG/DL) *URINE BLOOD MODERATE A (NEGATIVE ) *URINE PROTEIN NEGATIVE MG/DL (NEGATIVE MG/DL) *URINE UROBILINOGEN 0.2 EU/DL (0.2-1.0 EU/DL) *URINE NITRITES NEGATIVE (NEGATIVE ) *URINE LEUKOCYTES NEGATIVE (NEGATIVE ) *MICROSCOPIC EXAM PERFORMED PERFORMED *RBC URINE 0-1 /HPF (0-1 /HPF) *SQUAMOUS EP. CELLS FEW /LPF (NEG-FEW /LPF) *MUCOUS THREADS MODERATE /LPF A (NEGATIVE /LPF) Coagulation from 11/13/2016 6:20 PM*PROTHROMBIN TIME 10.7 SECONDS (9.4-11.5 SECONDS) *INR 1.0 (0.9-1.1 ) PARTIAL THROMBOPLASTIN TIME 27.1 SECONDS (23.0-31.0 SECONDS) Microbiology from 11/13/2016 8:15 PM* *ALYSSA- FUNGAL SMEAR Specimen Number: [id number] Sample Collection Date/Time: 11/13/2016 8:15 PM Specimen Source: Cervix Vaginal *WET PREP: No Trichomonas seen *ALYSSA- FUNGAL SMEAR: No yeast or fungal elements seen * *WET PREP Specimen Number: [id number] Sample Collection Date/Time: 11/13/2016 8:15 PM Specimen Source: Cervix Vaginal *WET PREP: No Trichomonas seen *ALYSSA- FUNGAL SMEAR: No yeast or fungal elements seen Problems Encounter Diagnosis No relevant problems exist. [...]
--- OUTSIDE RECORDS SUMMARY | 2016-12-11 15:28 | XMS REPORT | Summary of Care ---
Author Author Toño Berman M.D. Organization Unknown Address Unknown Phone Unavailable Care Team Providers Care Learning And Development Analyst Name Role Phone Kaley Berman M.D. Unavailable [...] Tracie Ott, Jorge Perez Start 08-Sep-2016 Active Allergies and Adverse Reactions [...] Details Influenza on: 12-May-2011 PPD Lot #: [id number] on: Influenza Lot #: [id number] on: 01-Jun-2016 Tdap (Adacel) Lot #: [id number] on: 08-Sep-2016 Family History Name Dates Details [...] 01-Sep-2016 13:19 BP Systolic 114 mm[Hg] Status: BP Diastolic 86 mm[Hg] Status: Weight 159 lb Status: Results Date Description Value Details 08-Sep-2016 15:53 Iron Panel with TIBC 1612 IRON 56 ug/dL Range: 50-170 TOTAL IRON BIND. CAPACITY 266 ug/dL Range: 250-450 % IRON SATURATION 21 % Range: 20-55 16:16 THYROID STIM. HORMONE 3602 Comments: Items were attached to this order : [employer] Kit THYROID STIM. HORMONE 2.252 uIU/mL Range: 0.550-4.780 Comments: No established reference ranges for infants and children <2 years of age----- 23-Sep-2016 15:13 OB Dept- Ultrasound Endovag Pelvic Sonogram Comments: Exam Date: 09/23/2016 13:38Dictation Date: 09/23/2016 15:13 XOB EV SONO 28-Sep-2016 09:32 ECG/ EKG Preop Electro CardioGram ECG waiting for interpretation, click ImageLink button to view/confirm the study. 09:45 XRay CHEST-PA & LAT Comments: Exam [...] >60 ml/min Range: >60 EST GFR, NON-AFR BELGIAN >60 ml/min Range: >60 Comments: EST GFR [...] Provider: Hu Woody M.D. On 05-Oct-2016 09:30 Interventions Provided Medication Changes* Amoxicillin-Pot Clavulanate 875-125 MG Oral Tablet - Completed * PredniSONE 10 MG Oral Tablet - Completed * TraMADol HCl - 50 MG Oral Tablet - Completed Instructions Name Dates Details Instructions [...]
--- OUTSIDE RECORDS SUMMARY | 2016-12-11 15:28 | XMS REPORT ---
Author Author Waqas Diaz Organization [employer] Address Unknown Phone Unavailable Care Team Providers Care Clinical Athletic Instructor Name Role Phone Waqas Diaz CP Unavailable Allergies No Known Allergies Problems Problem Type Condition Code Onset Dates Condition Status Problem Aortic Valve Stenosis 424.1 Active Problem Aortic valve stenosis I35.0 Active Problem Congenital bicuspid aortic valve Q23.9 Active Problem Congenital heart disease Q24.9 Active Problem V22.2 Active Problem Congenital Heart Disease 746.9 Active Problem Dyspnea on exertion 786.09 Active Problem Congenital Heart Disease with Bicuspid Aortic Valve 746.4 Active Medications No Known Medications Results No Known Results Summary Purpose [employer]ClinicalWorks Submission
--- OUTSIDE RECORDS SUMMARY | 2016-12-11 15:28 | XMS REPORT ---
Author Author Cheli Leos Organization [employer] Address Unknown Phone Unavailable Care Team Providers Care Mechanical Oxidizer Name Role Phone Cheli Leos CP Unavailable Allergies No Known Allergies Problems Problem Type Condition ICD-9 Code Onset Dates Condition Status Problem Aortic stenosis 424.1 Active Medications No Known Medications Results No Known Results Summary Purpose [employer]ClinicalWorks Submission
--- OUTSIDE RECORDS SUMMARY | 2016-12-11 15:28 | XMS REPORT | Summary of Care ---
Author Author Toño Berman M.D. Organization Unknown Address Unknown Phone Unavailable Care Team Providers Care Electrical Sign Wirer Name Role Phone Cullen Ott, Kaley Unavailable Unavailable Jose A Duran M.D. Unavailable [...] Status: Active Sinusitis (473.9, J32.9) Status: Active Medications Name Dates Details Bystolic [...] M.D. Start 16-Jul-2016 Active 60 Tablet Bottle Benzonatate 100 MG Oral Capsule TAKE 1 CAPSULE Every 4 hours PRN cough Do not take no more than 3 times a day. * Quantity: 20 Refills: 0 Qamar Duran M.D. * Start 28-Aug-2016 Active Amoxicillin-Pot Clavulanate 875-125 MG Oral Tablet TAKE 1 TABLET EVERY 12 HOURS WITH MEALS UNTIL GONE. * Quantity: 24 Refills: 0 Toño Berman M.D. * Start 01-Sep-2016 Active PredniSONE 10 MG [...] Details Influenza on: 12-May-2011 PPD Lot #: [id number] on: Influenza Lot #: [id number] on: 01-Jun-2016 Social History Name Dates Details - Status: Name Dates Details Light tobacco smoker Vital Signs Date Test Result Details 01-Sep-2016 13:19 BP Systolic 114 mm[Hg] Status: Comments: Location: ; Position: BP Diastolic 86 mm[Hg] Status: Comments: Location: ; Position: Weight 159 lb Status: 28-Aug-2016 10:05 BP Systolic 112 mm[Hg] Status: Comments: Location: ; Position: BP Diastolic 76 mm[Hg] Status: Comments: Location: ; Position: Temperature 98.1 f Status: Comments: Method: Heart Rate 82 /min Status: Comments: Location: [...] On 08-Sep-2016 08:15 Interventions Provided Medication Changes* Amoxicillin-Pot Clavulanate 875-125 MG Oral Tablet - Start * PredniSONE 10 MG Oral Tablet - Start * TraMADol HCl - 50 MG Oral Tablet - Completed Instructions Name Dates Details Instructions not documented Encounters Appointment; Qamar Duran M.D. Encounter Diagnosis: Problem [...]
--- OUTSIDE RECORDS SUMMARY | 2016-12-11 15:28 | XMS REPORT | Summary of Care ---
Author Author Toño Berman M.D. Organization Unknown Address Unknown Phone Unavailable Care Team Providers Care Smoke Eater Name Role Phone Cullen Ott, Kaley Unavailable Unavailable Toño Berman Unavailable Unavailable Unavailable [...] Flu vaccine need (V04.81, Z23) Status: Active Aortic stenosis (424.1, I35.0) Status: Active Acute pain of left knee (719.46, M25.562) Status: Active Contusion of knee (924.11, S80.00XA) Status: Active Generalized anxiety disorder (300.02, F41.1) Status: Active Medications Name Dates Details Bystolic [...] M.D. Start 16-Jul-2016 Active 60 Tablet Bottle TraMADol HCl - 50 MG Oral Tablet 1/2 to 1 tab every 6 hours as needed for PAIN * Quantity: 30 Refills: 0 Toño Berman M.D. Start 28-Jul-2016 Active Allergies and Adverse Reactions Name Dates [...] Details Influenza on: 12-May-2011 PPD Lot #: [id number] on: Influenza Lot #: [id number] on: 01-Jun-2016 Social History Name Dates Details - Status: Name Dates Details Light tobacco smoker Vital Signs Date Test Result Details 07-Aug-2016 13:39 BP Systolic 122 mm[Hg] Status: Comments: Location: ; Position: BP Diastolic 64 mm[Hg] Status: Comments: Location: ; Position: Weight 160 lb Status: 28-Jul-2016 11:40 BP Systolic 108 mm[Hg] Status: Comments: Location: ; Position: BP Diastolic 77 mm[Hg] Status: Comments: Location: ; Position: Heart Rate 76 /min Status: Comments: Location: ; Physical Findings 98 Status: Comments: O2 Saturation 16-Jul-2016 09:06 BP Systolic 104 mm[Hg] Status: Comments: Location: ; Position: BP Diastolic 80 mm[Hg] Status: Comments: Location: ; Position: Weight 161 lb Status: Results Date Description Value Details 28-Jul-2016 12:46 XRay KNEE-Left Comments: Exam Date: 07/28/2016 11: 42Dictation Date: 07/28/2016 12:46 X KNEE COMP (MIN 4V) LT Plan of Care Name Dates Details Planned [...]
--- OUTSIDE RECORDS SUMMARY | 2016-12-11 15:28 | XMS REPORT | Summary of Care ---
Author Author Jorge Hodges M.D. Unknown Address Unknown Phone Unavailable Care Team Providers Care Sales & Service Associate Name Role Phone Kaley Berman M.D. Unavailable [...] disease carrier status (V26.31, Z31.430) Status: Active Medications Name Dates Details Bystolic [...] * Start 01-Sep-2016 Active 12 Tablet Bottle Progesterone Micronized 200 MG Oral Capsule Take two tablets at HS for 5 nights every 30-35 days if no period. * Quantity: 10 Refills: 11 Jorge Hodges M.D. Start 08-Sep-2016 Active PNV Plus Multivitamin 27-1 MG Oral Tablet take one tablet by mouth every day * Quantity: 90 Refills: 3 Jogre Hodges M.D. Start 08-Sep-2016 Active Allergies and [...] History of Prior Surgical Procedure Not Done THYROID STIM. HORMONE 3602 Ordered: 08-Sep-2016 Iron Panel with TIBC 1612 Ordered: 08-Sep-2016 Immunization Name Dates Details Influenza on: 12-May-2011 PPD Lot #: [id number] on: Influenza Lot #: [id number] on: 01-Jun-2016 Tdap (Adacel) Lot #: [id number] on: 08-Sep-2016 Family History Name Dates Details [...] Berman M.D. On 06-Nov-2016 13:15 Appointment; Provider: Jorge Hodges M.D. On 23-Sep-2016 10:15 Appointment; Provider: Hu Woody M.D. On 18-Sep-2016 10:30 Appointment; Provider: Toño Berman M.D. On 10-Sep-2016 13:00 Interventions Provided Medication Changes* PNV Plus Multivitamin 27-1 MG Oral Tablet - Start * Progesterone Micronized 200 MG Oral Capsule - Start Labs/Procedures/Imaging* Iron Panel with TIBC 1612; To be Done: 08 Sep 2016 * THYROID STIM. HORMONE 3602; To be Done: 08 Sep 2016 Medications/Immunizations Administered* Tdap (Adacel); Done: 08 Sep 2016 Instructions Name Dates Details Instructions not documented [...] Problem not documented On 07:30 Appointment; Jena Cody, P.T.Jason Encounter Diagnosis: Problem not documented On 15:30 Appointment; Domingo Branch D.O. Encounter Diagnosis: Problem not documented On 16-Oct-2015 16:15
--- OUTSIDE RECORDS SUMMARY | 2016-12-11 15:28 | XMS REPORT ---
Author Author Cheli Leos Organization [employer] Address Unknown Phone Unavailable Care Team Providers Care Pediatric Speech Therapist Name Role Phone Cheli Leos CP Unavailable Allergies, Adverse Reactions, Alerts Substance Reaction Event Type Bactrim Info Not Available Drug Allergy Problems Problem Type Condition ICD-9 Code Onset Dates Condition Status Assessment Acute tonsillitis 463 Active Problem Aortic stenosis 424.1 Active Medications Medication Code System Code Instructions Start Date End Date Status Dosage Amoxicillin [facility] [address]-75 500 MG Orally three times daily November 07, 2014 November 17, 2014 1 tablet Ibuprofen [facility] [address]-55 200 MG Orally every 6 hrs 1 tablet as needed Tylenol Extra Strength [facility] [address]-68 500 MG Orally every 6 hrs 1 tablet as needed Sprintec 28 [facility] [address]-92 0.25-35 MG-MCG Orally Once a day Oct 22, 2014 1 tablet Procedures Procedure Coding System Code Date OFFICE VISIT EST PATIENT LEVEL 3 CPT-4 66786 November 07, 2014 Vital Signs Date/Time: November 07, 2014 BMI 27.35 Index Weight 154.4 lbs Height 63 in Blood Pressure Diastolic 74 mm Hg Blood Pressure Systolic 102 mm Hg Cardiac Monitoring Heart Rate 80 /min Temperature 98.8 F Respiratory Rate 18 /min Results No Known Results Summary Purpose eClinicalWorks Submission
--- OUTSIDE RECORDS SUMMARY | 2016-12-11 15:28 | XMS REPORT | Summary of Care ---
Author Author Toño Berman M.D. Organization Unknown Address Unknown Phone Unavailable Care Team Providers Care Hamper Maker Name Role Phone Kaley Berman M.D. Unavailable [...] Status: Active Dysuria (788.1, R30.0) Status: Active Medications Name Dates Details Ondansetron HCl - 8 MG Oral Tablet one po every 6 hours prn Quantity: 20 Jorge Hodges M.D. Start 15-Jan-2011 Active Bystolic 2.5 MG Oral Tablet TAKE 1 TABLET DAILY. * Refills: 0 Toño Berman M.D. * Start 16-Jul-2016 Active Progesterone Micronized 200 MG [...] TABLET DAILY WITH FOOD. * Refills: 0 oTño Bemran M.D. * Start 16-Nov-2016 Active ClomiPHENE Citrate 50 MG Oral Tablet take 1/2 tablet (25 mg) day 5 through day 9 * Quantity: 5 Refills: 0 Jorge Hodges M.D. * Start 24-Nov-2016 Active Allergies and Adverse Reactions [...] Surgical Procedure Not Done History of Tonsillectomy Urinalysis, Reflex to Microscopic or Culture PRN 8005 Ordered: 30-Nov-2016 Immunization Name Dates Details Influenza on: 12-May-2011 PPD Lot #: [id number] on: Influenza Lot #: [id number] on: 01-Jun-2016 Tdap (Adacel) Lot #: [id number] on: 08-Sep-2016 Family History Name Dates Details [...] Provider: Jorge Hodges M.D. On 08-Sep-2017 13:15 Interventions Provided Labs/Procedures/Imaging* Urinalysis, Reflex to Microscopic or Culture PRN 8005; To be Done: 30 Nov 2016 Instructions Name Dates Details Instructions not documented Encounters Appointment; Jorge Hodges M.D. Encounter Diagnosis: Problem not documented On 24-Nov-2016 15:15 Appointment; Toño Berman M.D. Encounter Diagnosis: Problem not documented On 16-Nov-2016 11:30 Appointment; Domingo Branch D.O. Encounter Diagnosis: Problem not documented On 13-Nov-2016 17:04 Appointment; Toño Berman M.D. Encounter Diagnosis: Problem not documented On 13-Nov-2016 13:00 Appointment; Maycol Huynh M.A.|C.C.C.-A Encounter Diagnosis: Problem not documented On 15-Oct-2016 [...]
--- OUTSIDE RECORDS SUMMARY | 2016-12-11 15:28 | XMS REPORT ---
Author Author GENERATED, SYSTEM Organization Unknown Address Unknown Phone Unavailable Care Team Providers Care Pinsetter Mechanic Helper Name Role Phone [facility] Unavailable Reason For Visit Chief Complaint MOUTH PAIN Social History Functional Status Vital Signs Results Problems Encounter Diagnosis No relevant problems exist. [...]
--- OUTSIDE RECORDS SUMMARY | 2016-12-11 15:29 | XMS REPORT ---
Author Author Waqas Diaz Organization [employer] Address Unknown Phone Unavailable Care Team Providers Care Chili Maker Name Role Phone Waqas Diaz CP Unavailable Allergies No Known Allergies Problems Problem Type Condition Code Onset Dates Condition Status Problem Aortic Valve Stenosis 424.1 Active Problem V22.2 Active Problem Congenital Heart Disease 746.9 Active Problem Chest discomfort R07.89 Active Problem Congenital heart disease Q24.9 Active Problem Palpitations R00.2 Active Problem Dyspnea on exertion 786.09 Active Problem Congenital Heart Disease with Bicuspid Aortic Valve 746.4 Active Problem Aortic valve stenosis I35.0 Active Problem Congenital bicuspid aortic valve Q23.9 Active Medications No Known Medications Results No Known Results Summary Purpose eClinicalWorks Submission
--- OUTSIDE RECORDS SUMMARY | 2016-12-11 15:29 | XMS REPORT | Summary of Care ---
Author Author Toño Berman M.D. Organization Unknown Address Unknown Phone Unavailable Care Team Providers Care Pot Liner Name Role Phone Kaley Berman M.D. Unavailable [...] Details Influenza on: 12-May-2011 PPD Lot #: [id number] on: Influenza Lot #: [id number] on: 01-Jun-2016 Tdap (Adacel) Lot #: [id number] on: 08-Sep-2016 Family History Name Dates Details [...] Items were attached to this order : [employer] Kit THYROID STIM. HORMONE 2.252 uIU/mL Range: [...] 09/28/2016 09:45 X CHEST PA & LAT Plan of Care Name Dates Details Planned [...] not documented On 08-Sep-2016 13:30 Appointment; Hu Wodoy M.D. Encounter Diagnosis: Problem not documented On [...]
--- OUTSIDE RECORDS SUMMARY | 2016-12-11 15:29 | XMS REPORT | Summary of Care ---
Author Author Jorge Hodges M.D. Organization Unknown Address Unknown Phone Unavailable Care Team Providers Care County Surveyor Name Role Phone Kaley Berman M.D. 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 * Start 15-Jan-2011 Active Bystolic 2.5 MG Oral [...] FOOD. * Refills: 0 Toño Berman M.D. * Start 16-Nov-2016 Active ClomiPHENE Citrate [...] Details Influenza on: 12-May-2011 PPD Lot #: [id number] on: Influenza Lot #: [id number] on: 01-Jun-2016 Tdap (Adacel) Lot #: [id number] on: 08-Sep-2016 Family History Name Dates Details [...] Hodges M.D. On 08-Sep-2017 13:15 Interventions Provided Medication Changes* ClomiPHENE Citrate 50 MG Oral Tablet - Start * Progesterone Micronized 200 MG Oral Capsule - Renew Instructions Name Dates Details Instructions not documented [...]
--- OUTSIDE RECORDS SUMMARY | 2016-12-11 15:29 | XMS REPORT ---
Author Author Cheli Leos Organization [employer] Address Unknown Phone Unavailable Care Team Providers Care Forestry Pilot Name Role Phone Cheli Leos CP Unavailable Allergies No Known Allergies Problems Problem Type Condition Code Onset Dates Condition Status Assessment Encounter for pre-operative laboratory testing V72.84 Active Problem Aortic stenosis 424.1 Active Medications No Known Medications Results No Known Results Summary Purpose eClinicalWorks Submission
--- OUTSIDE RECORDS SUMMARY | 2016-12-11 15:29 | XMS REPORT | Summary of Care ---
Author Author Toño Berman M.D. Organization Unknown Address Unknown Phone Unavailable Care Team Providers Care Steam Oven Operator Name Role Phone Cullen Ott, Kaley Unavailable Unavailable Tracie Ott, Tereza Unavailable Unavailable Kesha Woody M.D. Unavailable Unavailable [...] PAIN. * Quantity: 30 Refills: 0 Hu Wodoy M.D. Start 05-Oct-2016 End 10-Oct-2016 Active Cefdinir [...] Details Influenza on: 12-May-2011 PPD Lot #: [id number] on: Influenza Lot #: [id number] on: 01-Jun-2016 Tdap (Adacel) Lot #: [id number] on: 08-Sep-2016 Family History Name Dates Details Family history of diabetes mellitus (V18.0, Z83.3) Status: Active Name Dates Details Family history of cardiac disorder (V17.49, Z82.49) Status: Active Family history of hyperlipidemia (V18.19, Z83.49) Status: Active Social History Name Dates Details - Status: Name Dates Details Light tobacco smoker Vital Signs Date Test Result Details 09-Oct-2016 09:12 BP Systolic 110 mm[Hg] Status: Comments: Location: ; Position: BP Diastolic 80 mm[Hg] Status: Comments: Location: ; Position: Temperature 98 f Status: Weight 154 lb Status: Body Mass Index [...] >60 ml/min Range: >60 EST GFR, NON-AFR [place] >60 ml/min Range: >60 Comments: EST GFR [...]
--- OUTSIDE RECORDS SUMMARY | 2016-12-11 15:29 | XMS REPORT | Summary of Care ---
Author Author Domingo Branch D.O. Organization Unknown Address [address] [place], [place] [address] Phone Unavailable Care Team Providers Care Soccer Coach Name Role Phone Kaley Berman M.D. Unavailable Unavailable Tereza Hodges M.D. Unavailable Unavailable Carmella Branch D.O. Unavailable Unavailable Toño Berman Unavailable Unavailable Unavailable [...] Status: Active Menorrhagia (626.2, N92.0) Status: Active Abdominal pain in female (789.00, R10.9) Status: Active Medications Name Dates Details Bystolic 2.5 MG Oral Tablet TAKE 1 TABLET DAILY. Toño Berman M.D. Start 16-Jul-2016 Active BusPIRone [...] Details Influenza on: 12-May-2011 PPD Lot #: [id number] on: Influenza Lot #: [id number] on: 01-Jun-2016 Tdap (Adacel) Lot #: [id number] on: 08-Sep-2016 Family History Name Dates Details Family history of diabetes mellitus (V18.0, Z83.3) Status: Active Name Dates Details Family history of cardiac disorder (V17.49, Z82.49) Status: Active Family history of hyperlipidemia (V18.19, Z83.49) Status: Active Social History Name Dates Details - Status: Name Dates Details Light tobacco smoker Vital Signs Date Test Result Details 13-Nov-2016 17:20 BP Systolic 100 mm[Hg] Status: Comments: Location: ; Position: BP Diastolic 68 mm[Hg] Status: Comments: Location: ; Position: Temperature 98.1 f Status: Comments: Method: Heart Rate 110 /min Status: Comments: Location: ; Height 66 in Status: Weight 147 lb Status: Physical Findings 99 Status: Comments: O2 Saturation Body Mass Index Calculated 23.73 kg/m2 Status: Body Surface Area Calculated 1.75 m2 Status: 15-Oct-2016 11:05 Heart Rate 87 /min Status: Comments: Location: ; Weight 151 lb Status: Physical Findings 97 Status: Comments: O2 Saturation Body Mass Index Calculated 25.13 kg/m2 Status: Body Surface Area Calculated 1.76 m2 Status: Results Date Description Value Details Results not documented Plan of Care Name Dates Details Planned Observations Planned Goals not documented Planned Encounters Appointment; Provider: Jorge Hodges M.D. On 08-Sep-2017 13:15 Instructions Name Dates Details Instructions not [...]
--- OUTSIDE RECORDS SUMMARY | 2016-12-11 15:29 | XMS REPORT | Summary of Care ---
Author Author Toño Berman M.D. Organization Unknown Address Unknown Phone Unavailable Care Team Providers Care Hostess Party Sales Representative Name Role Phone Kaley Berman M.D. Unavailable Unavailable RoOzKesha Unavailable Unavailable Unavailable Unavailable Functional Status Name Dates Details Functional status health issues are not documented Status: Name Dates Details Cognitive status health issues are not documented Status: Problems Name Dates Details Contusion of knee (924.11, S80.00XA) Status: Active Supervision of normal (V22.1, Z34.90) Status: Active Right ankle pain (719.47, M25.571) Status: Active Acute foot pain, right (729.5, M79.671) Status: Active Sprain of left foot (845.10, S93.602A) Status: Active PPD screening test (V74.1, Z11.1) Status: Active Flu vaccine need (V04.81, Z23) Status: Active Aortic stenosis (424.1, I35.0) Status: Active Generalized anxiety disorder (300.02, F41.1) Status: Active Medications Name Dates Details Bystolic 2.5 MG Oral Tablet TAKE 1 TABLET DAILY. Toño Berman M.D. Start 16-Jul-2016 Active BuPROPion HCl ER (XL) 150 MG Oral Tablet Extended Release 24 Hour take one tab daily for a week, then take two tabs daily * Quantity: 1 Refills: 1 Toño Berman M.D. Start 16-Jul-2016 Active 60 Tablet Extended Release 24 Hour Bottle BusPIRone HCl - 5 MG Oral Tablet take one to two tabs three times daily as needed for anxiety * Quantity: 1 Refills: 1 Toño Berman M.D. Start 16-Jul-2016 Active 60 Tablet Bottle Allergies and Adverse Reactions Name [...] Details Influenza on: 12-May-2011 PPD Lot #: [id number] on: Influenza Lot #: [id number] on: 01-Jun-2016 Social History Name Dates Details - Status: Name Dates Details Light tobacco smoker Vital Signs Date Test Result Details 16-Jul-2016 09:06 BP Systolic 104 mm[Hg] Status: Comments: Location: ; Position: BP Diastolic 80 mm[Hg] Status: Comments: Location: ; Position: Weight 161 lb Status: Results Date Description Value Details Results not documented Plan of Care Name Dates Details Planned Observations Planned Goals not documented Planned Encounters Appointment; Provider: Toño Berman M.D. On 07-Aug-2016 13:45 Interventions Provided Medication Changes* BuPROPion HCl ER (XL) 150 MG Oral Tablet Extended Release 24 Hour - Start * BusPIRone HCl - 5 MG Oral Tablet - Start Instructions Name Dates Details Instructions not documented Encounters Appointment; Alysha Vega Encounter Diagnosis: Problem not documented On 01-Jun-2016 09:05 Appointment; Alysha Vega Encounter Diagnosis: Problem not documented On 07:30 Appointment; Jena Cody PDeanneTSebastian Encounter Diagnosis: Problem not documented On 15:30 Appointment; Domingo Branch D.O. Encounter Diagnosis: Problem not documented On 16-Oct-2015 16:15
--- OUTSIDE RECORDS SUMMARY | 2016-12-11 15:29 | XMS REPORT ---
Author Author Cheli Leos Organization [employer] Address Unknown Phone Unavailable Care Team Providers Care Night Order Selector Name Role Phone Cheli Leos CP Unavailable Allergies No Known Allergies Problems Problem Type Condition ICD-9 Code Onset Dates Condition Status Problem Aortic stenosis 424.1 Active Medications Medication Code System Code Instructions Start Date End Date Status Dosage Sprintec 28 [facility] [address]-43 0.25-35 MG-MCG Orally Once a day Oct 22, 2014 1 tablet Results No Known Results Summary Purpose [employer] Submission
--- OUTSIDE RECORDS SUMMARY | 2016-12-11 15:29 | XMS REPORT ---
Author Author Waqas Diaz Organization [employer] Address Unknown Phone Unavailable Care Team Providers Care Split Leather Mosser Name Role Phone Waqas Diaz CP Unavailable [...]
--- OUTSIDE RECORDS SUMMARY | 2016-12-11 15:29 | XMS REPORT | Summary of Care ---
Author Author Toño Berman M.D. Organization Unknown Address Unknown Phone Unavailable Care Team Providers Care Franchise Sales Representative Name Role Phone Cullen Ott, Kaley Unavailable [...] anxiety disorder (300.02, F41.1) Status: Active Acute pain of left knee (719.46, M25.562) Status: Active Contusion of knee (924.11, S80.00XA) Status: Active Medications Name Dates Details Bystolic 2.5 MG Oral Tablet TAKE 1 TABLET DAILY. Toño Breman M.D. Start 16-Jul-2016 Active BuPROPion HCl ER [...] Details Influenza on: 12-May-2011 PPD Lot #: [id number] on: Influenza Lot #: [id number] on: 01-Jun-2016 Social History Name Dates Details - Status: Name Dates Details Light tobacco smoker Vital Signs Date Test Result Details 28-Jul-2016 11:40 BP Systolic 108 mm[Hg] Status: Comments: Location: ; Position: BP Diastolic 77 mm[Hg] Status: Comments: Location: ; Position: Heart Rate 76 /min Status: Physical Findings 98 Status: Comments: O2 [...] On 07-Aug-2016 13:45 Interventions Provided Medication Changes* TraMADol HCl - 50 MG Oral Tablet - Start Labs/Procedures/Imaging* XRay KNEE-Left; Done: Jul 28 2016 12:46PM Instructions Name Dates Details Instructions not documented [...]
--- OUTSIDE RECORDS SUMMARY | 2016-12-11 15:29 | XMS REPORT ---
Author Author GENERATED, SYSTEM Organization Unknown Address Unknown Phone Unavailable Care Team Providers Care Gear Machine Operator Name Role Phone MD CECILE, ASHLEY [phone] Reason For Visit Chief Complaint NAUSEA, LOWER BACK PAIN Social History Functional Status Vital Signs Results Urinalysis from 11/15/2016 3:38 PM*URINE COLOR YELLOW (STRAW/YELL/DK YELL ) *URINE APPEARANCE CLEAR (CLEAR ) URINE PH 5.0 (5.0-8.0 ) URINE SPECIFIC GRAVITY 1.025 (<=1.005->=1.030 ) *URINE GLUCOSE NEGATIVE MG/DL (NEGATIVE MG/DL) *URINE BILIRUBIN NEGATIVE (NEGATIVE ) *URINE KETONES NEGATIVE MG/DL (NEGATIVE MG/DL) *URINE BLOOD SMALL A (NEGATIVE ) *URINE PROTEIN NEGATIVE MG/DL (NEGATIVE MG/DL) *URINE UROBILINOGEN 0.2 EU/DL (0.2-1.0 EU/DL) *URINE NITRITES NEGATIVE (NEGATIVE ) *URINE LEUKOCYTES TRACE A (NEGATIVE ) UR NEGATIVE (NEGATIVE ) *MICROSCOPIC EXAM PERFORMED PERFORMED *WBC URINE 1-5 /HPF (0-5 /HPF) *RBC URINE 1-5 /HPF A (0-1 /HPF) *SQUAMOUS EP. CELLS MANY /LPF A (NEG-FEW /LPF) *MUCOUS THREADS MANY /LPF A (NEGATIVE /LPF) *BACTERIA MODERATE /HPF A (NEGATIVE /HPF) Microbiology from 11/15/2016 3:38 PM* CULTURE URINE (Preliminary Result) Specimen Number: [id number] Sample Collection Date/Time: 11/15/2016 3:38 PM Specimen Source: Urine Clean Catch CULTURE URINE: <1,000 cfu/ml gram positive colony types Problems Encounter Diagnosis No relevant problems exist. [...]
--- OUTSIDE RECORDS SUMMARY | 2016-12-11 15:29 | XMS REPORT ---
Author Author GENERATED, SYSTEM Organization Unknown Address Unknown Phone Unavailable Care Team Providers Care Principal Product Manager Name Role Phone [facility] PP Unavailable Reason For Visit Chief Complaint TONSILS REMOVED - STILL PAINFUL Social History Functional Status Vital Signs Results [...]
--- OUTSIDE RECORDS SUMMARY | 2016-12-11 15:29 | XMS REPORT ---
Author Author GENERATED, SYSTEM Organization Unknown Address Unknown Phone Unavailable Care Team Providers Care Boat Loader Helper Name Role Phone MD CECILE, ASHLEY PP [phone] Reason For Visit Chief Complaint ABD PAIN Social History Functional Status Vital Signs Results Chemistry from 12/05/2016 9:15 PMSODIUM 141 MMOL/L (136-145 MMOL/L) POTASSIUM 3.5 MMOL/L (3.5-5.1 MMOL/L) CHLORIDE 104 MMOL/L (98-107 MMOL/L) TCO2 26.2 MMOL/L (21.0-32.0 MMOL/L) *ANION GAP 10.8 MMOL/L (8.0-16.0 MMOL/L) BUN 15 MG/DL (7-18 MG/DL) CREATININE 1.02 MG/DL (0.55-1.02 MG/DL) *BUN/CREATININE RATIO 14.7 (9.1-17.0 ) GLUCOSE 98 MG/DL (65-99 MG/DL) *GFR EST NON AFR GABONESE 75 ML/MIN *GFR EST AFR AMER 87 ML/MIN CALCIUM 9.4 MG/DL (8.5-10.1 MG/DL) BILIRUBIN TOTAL 0.50 MG/DL (0.20-1.00 MG/DL) TOTAL PROTEIN 7.5 GM/DL (6.4-8.2 GM/DL) ALBUMIN 4.2 GM/DL (3.4-5.0 GM/DL) *GLOBULIN 3.3 GM/DL (2.3-3.5 GM/DL) *A/G RATIO 1.3 MG/DL L (1.5-2.2 MG/DL) ALK PHOS 72 U/L (46-116 U/L) ALT (SGPT) 21 U/L (16-63 U/L) AST (SGOT) 19 U/L (15-37 U/L) Hematology from 12/05/2016 9:15 PMWBC 7.6 X10e3/UL (3.6-11.2 X10e3/UL) RBC 4.66 X10e6/UL (3.63-4.92 X10e6/UL) HEMOGLOBIN 13.7 G/DL (11.0-14.3 G/DL) HEMATOCRIT 40.3 % (31.2-41.9 %) *MCV 86.5 FL (79.0-98.0 FL) *MCH 29.3 PG (27.0-33.0 PG) *MCHC 33.9 G/DL (32.0-36.0 G/DL) *RDW 13.5 % (12.3-17.0 %) *RDWSD 41.1 (37.1-47.8 ) PLATELET 204 X10e3/UL (159-386 X10e3/UL) *MPV 9.8 FL (7.4-10.4 FL) AUTOMATED DIFF PERFORMED SEGS 58.4 % *LYMPHOCYTES 33.6 % *MONOCYTES 6.4 % *EOSINOPHILS 1.1 % *BASOPHILS 0.5 % *ABSOLUTE NEUTROPHILS 4.40 X10e3/UL (1.80-7.80 X10e3/UL) *ABSOLUTE LYMPHOCYTES 2.50 X10e3/UL (1.00-3.00 X10e3/UL) *ABSOLUTE MONOCYTES 0.50 X10e3/UL (0.30-1.00 X10e3/UL) *ABSOLUTE EOSINOPHILS 0.10 X10e3/UL (0.00-0.50 X10e3/UL) *ABSOLUTE BASOPHILS 0.00 X10e3/UL (0.00-0.20 X10e3/UL) Urinalysis from 12/05/2016 10:15 PM*URINE COLOR YELLOW (STRAW/YELL/DK YELL ) *URINE APPEARANCE CLEAR (CLEAR ) URINE PH 6.0 (5.0-8.0 ) URINE SPECIFIC GRAVITY <1.005 (<=1.005->=1.030 ) *URINE GLUCOSE NEGATIVE MG/DL (NEGATIVE MG/DL) *URINE BILIRUBIN NEGATIVE (NEGATIVE ) *URINE KETONES NEGATIVE MG/DL (NEGATIVE MG/DL) *URINE BLOOD NEGATIVE (NEGATIVE ) *URINE PROTEIN NEGATIVE MG/DL (NEGATIVE MG/DL) *URINE UROBILINOGEN 0.2 EU/DL (0.2-1.0 EU/DL) *URINE NITRITES NEGATIVE (NEGATIVE ) *URINE LEUKOCYTES TRACE A (NEGATIVE ) UR NEGATIVE (NEGATIVE ) *MICROSCOPIC EXAM PERFORMED PERFORMED *WBC URINE 1-5 /HPF (0-5 /HPF) *RBC URINE 1-5 /HPF A (0-1 /HPF) *SQUAMOUS EP. CELLS MODERATE /LPF A (NEG-FEW /LPF) *MUCOUS THREADS FEW /LPF A (NEGATIVE /LPF) *BACTERIA FEW /HPF A (NEGATIVE /HPF) Microbiology from 12/05/2016 10:15 PM* CULTURE URINE Specimen Number: [id number] Sample Collection Date/Time: 12/05/2016 10:15 PM Specimen Source: Urine No Method Given CULTURE URINE: No growth at 48 hrs Problems Encounter Diagnosis No relevant problems exist. [...]
--- OUTSIDE RECORDS SUMMARY | 2016-12-11 15:29 | XMS REPORT | Summary of Care ---
Author Author Toño Berman M.D. Organization Unknown Address Unknown Phone Unavailable Care Team Providers Care Yarder Puncher Name Role Phone Cullen Ott, Kaley Unavailable [...] of left knee (719.46, M25.562) Status: Active Medications Name Dates Details Bystolic [...] Status: Resolved Procedures Procedure Dates Details XRay KNEE-Left Ordered: 28-Jul-2016 Immunization Name Dates Details Influenza on: 12-May-2011 PPD Lot #: [id number] on: Influenza Lot #: [id number] on: 01-Jun-2016 Social History Name Dates Details [...] Oral Tablet - Start Labs/Procedures/Imaging* XRay KNEE-Left; To be Done: 28 Jul 2016 Instructions Name Dates Details Instructions not [...]
--- OUTSIDE RECORDS SUMMARY | 2016-12-11 15:29 | XMS REPORT | Summary of Care ---
Author Author Domingo Branch D.O. Organization Unknown Address [address] [place], [place] [id number] Phone Unavailable Care Team Providers Care Lead Clinical Research Coordinator Name Role Phone Carmella Branch D.O. Unavailable Unavailable Kesha Leos PP Unavailable Unavailable Unavailable Functional [...] of left foot (845.10, S93.602A) Status: Active Medications Name Dates Details TraMADol HCl - 50 MG Oral Tablet TAKE 1 TABLET Every 4 hours PRN foot and ankle pain Quantity: 30 Domingo Branch D.O.* Started 16-Oct-2015 Ended 21-Oct-2015 Active Allergies and Adverse Reactions Name Dates [...] Dates Details Influenza Administered on:12-May-2011 Social History Name Dates Details Smoking Status* Light tobacco smoker Vital Signs Date Test Result Details 16-Oct-2015 [...]
--- OUTSIDE RECORDS SUMMARY | 2016-12-11 15:30 | XMS REPORT | Summary of Care ---
Author Author Syed Hickman M.A., Jill A Organization Unknown Address [address] [place], [place] [address] Phone Unavailable Care Team Providers Care Cultural Centre Manager Name Role Phone Kaley Berman M.D. Unavailable Unavailable Syed Hickman M.A., A Unavailable Unavailable Tereza Hodges M.D. Unavailable Unavailable [...] Quantity: 60 Refills: 0 Toño Berman M.D. Start 25-Sep-2016 Active BusPIRone HCl - 5 [...] Details Influenza on: 12-May-2011 PPD Lot #: [id number] on: Influenza Lot #: [id number] on: 01-Jun-2016 Tdap (Adacel) Lot #: [id number] on: 08-Sep-2016 Family History Name Dates Details [...]
--- OUTSIDE RECORDS SUMMARY | 2016-12-11 15:30 | XMS REPORT | Summary of Care ---
Author Author Toño Berman M.D. Organization Unknown Address Unknown Phone Unavailable Care Team Providers Care Tray Server Name Role Phone Kaley Berman M.D. Unavailable Unavailable Tereza Hodges M.D. Unavailable Unavailable Toño Berman Unavailable Unavailable Unavailable Unavailable Functional Status Name Dates Details Functional status health issues are not documented Status: Name Dates Details Cognitive status health issues are not documented Status: Problems Name Dates Details Generalized anxiety disorder (300.02, F41.1) Status: Active Encounter for routine gynecological examination (V72.31, Z01.419) Status: Active Menorrhagia (626.2, N92.0) Status: Active Metrorrhagia (626.6, N92.1) Status: Active Sleep-disordered breathing (780.59, G47.30) Status: Active Amenorrhea (626.0, N91.2) Status: Active Aortic stenosis (424.1, I35.0) Status: Active Dysmenorrhea (625.3, N94.6) Status: Active Otalgia, bilateral (388.70, H92.03) Status: Active Acute pain of left knee (719.46, M25.562) Status: Active Menorrhagia with irregular cycle (626.2, N92.1) Status: Active Abdominal pain in female (789.00, [...] Quantity: 90 Refills: 3 Tracie Ott, Jorge Starks * Start 08-Sep-2016 Active Iron 325 (65 [...] Resolved Procedures Procedure Dates Details History of Tonsillectomy History of Prior Surgical Procedure Not Done Procedures not documented Immunization Name Dates Details Influenza on: 12-May-2011 PPD Lot #: [id number] on: Influenza Lot #: [id number] on: 01-Jun-2016 Tdap (Adacel) Lot #: [id number] on: 08-Sep-2016 Family History Name Dates Details [...]
--- OUTSIDE RECORDS SUMMARY | 2016-12-11 15:30 | XMS REPORT | Summary of Care ---
Author Author Tñoo Berman M.D. Organization Unknown Address Unknown Phone Unavailable Care Team Providers Care Flooring Installer Name Role Phone Cullen Ott, Kaley Unavailable Unavailable Tereza Hodges M.D. Unavailable Unavailable [...] Active Chronic tonsillitis (474.00, J35.01) Status: Active Medications Name Dates Details Bystolic [...] 3 Jorge Hodges M.D. Start 08-Sep-2016 Active Cefdinir 300 MG Oral Capsule TAKE [...] Details Influenza on: 12-May-2011 PPD Lot #: [id number] on: Influenza Lot #: [id number] on: 01-Jun-2016 Tdap (Adacel) Lot #: [id number] on: 08-Sep-2016 Family History Name Dates Details Family history of diabetes mellitus (V18.0, Z83.3) Status: Active Name Dates Details Family history of cardiac disorder (V17.49, Z82.49) Status: Active Family history of hyperlipidemia (V18.19, Z83.49) Status: Active Social History Name Dates Details - Status: Name Dates Details Light tobacco smoker Vital Signs Date Test Result Details 10-Oct-2016 08:37 BP Systolic 122 mm[Hg] Status: Comments: Location: ; Position: BP Diastolic 90 mm[Hg] Status: Comments: Location: ; Position: Temperature 97.5 f Status: 09-Oct-2016 09:12 BP Systolic 110 mm[Hg] Status: [...] >60 ml/min Range: >60 EST GFR, NON-AFR [place] >60 ml/min Range: >60 Comments: EST GFR [...]
--- OUTSIDE RECORDS SUMMARY | 2016-12-11 15:30 | XMS REPORT | Summary of Care ---
Author Author Hu Woody M.D. Unknown Address Unknown Phone Unavailable Care Team Providers Care Director Sales Support Name Role Phone Kaley Berman M.D. Unavailable [...] Details Influenza on: 12-May-2011 PPD Lot #: [id number] on: Influenza Lot #: [id number] on: 01-Jun-2016 Family History Name Dates Details [...] 13:15 Appointment; Provider: Jorge Hodges M.D. On 08-Sep-2016 [...]
--- OUTSIDE RECORDS SUMMARY | 2016-12-11 15:30 | XMS REPORT ---
Author Author Aminah Presley Organization [employer] Address Unknown Phone Unavailable Care Team Providers Care Skein Winding Operator Name Role Phone Aminah Presley CP Unavailable Allergies, Adverse Reactions, Alerts Substance Reaction Event Type Bactrim Info Not Available Drug Allergy Problems Problem Type Condition ICD-9 Code Onset Dates Condition Status Assessment Dermatitis 692.9 Active Assessment Cellulitis of right leg 682.6 Active Problem Aortic stenosis 424.1 Active Medications Medication Code System Code Instructions Start Date End Date Status Dosage Sprintec 28 [facility] [address]-11 0.25-35 MG-MCG Orally Once a day Oct 22, 2014 1 tablet PredniSONE [facility] [address]-55 10 MG Orally Once a day March 04, 2015March 6 tablet today then decrease by 1 tablet each day, 5,4,3,2,1 until gone Cephalexin [facility] [address]-66 500 MG Orally Twice a day March 04, 2015 March 14, 2015 1 tablet Tylenol Extra Strength [facility] [address]-02 500 MG Orally every 6 hrs 1 tablet as needed Ibuprofen [facility] [address]-36 200 MG Orally every 6 hrs 1 tablet as needed Procedures Procedure Coding System Code Date OFFICE VISIT EST PATIENT LEVEL 3 CPT-4 73780 March 04, 2015 Vital Signs Date/Time: March 04, 2015 BMI 26.92 Index Weight 152 lbs Height 63 in Respiratory Rate 18 /min Blood Pressure Diastolic 82 mm Hg Blood Pressure Systolic 112 mm Hg Cardiac Monitoring Heart Rate 78 /min Results No Known Results Summary Purpose [employer] Submission
--- OUTSIDE RECORDS SUMMARY | 2016-12-11 15:30 | XMS REPORT ---
Author Author Waqas Diaz Organization [employer] Address Unknown Phone Unavailable Care Team Providers Care Floor Installer Name Role Phone Waqas Diaz CP Unavailable Allergies No Known Allergies Problems Problem Type Condition Code Onset Dates Condition Status Problem Aortic Valve Stenosis 424.1 Active Problem V22.2 Active Problem Congenital Heart Disease 746.9 Active Assessment Palpitations R00.2 Active Problem Chest discomfort R07.89 Active Problem Congenital heart disease Q24.9 Active Problem Palpitations R00.2 Active Problem Dyspnea on exertion 786.09 Active Problem Congenital Heart Disease with Bicuspid Aortic 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
[2016-12-11] MEDS: LR 1,000 ML IV SCH ×2 (15:52→16:15)
[2016-12-11] MEDS ORDERED: NEBI2.5T5 PO (15:57)
[2016-12-11] MEDS ORDERED: PROG200C2 PO (15:57)
[2016-12-11] MEDS ORDERED: PREN1TAB73 PO (15:57)
[2016-12-11] MEDS: MORPHINE SULFATE 4 MG SYRINGE IV PRN ×2 (16:03→17:55)
[2016-12-11 16:06] LABS: BASOPHILS % (AUTO) 0.2 % (0-2); EOSINOPHILS # (AUTO) 0.1 T/MM3 (0-0.5); EOSINOPHILS % (AUTO) 0.8 % (0-4); HCT - HEMATOCRIT 41.5 % (36-46); HGB - HEMOGLOBIN 14.1 GM/DL (12-16); IMMATURE GRANULOCYTE # (AUTO) 0.01 T/MM3 (0.00-0.03); IMMATURE GRANULOCYTE % (AUTO) 0.1 % (0.0-0.5); LYMPHOCYTES # (AUTO) 2.2 T/MM3 (1-4.8); LYMPHOCYTES % (AUTO) 25.6 % (23-45); MEAN CORPUSCULAR HGB 29.4 UUG (26-34); MEAN CORPUSCULAR VOLUME 86.5 UM3 (80-100); MEAN PLATELET VOLUME 11.8 UM3 (9.4-12.4); MONOCYTES # (AUTO) 0.5 T/MM3 (0-0.8); MONOCYTES % (AUTO) 5.6 % (0-9.0); NEUTROPHILS #(AUTO)-ABSOLUTE 5.9 T/MM3 (1.8-7.7); NEUTROPHILS % (AUTO) 67.7 % (33-66); WBC - WHITE BLOOD COUNT 8.7 T/MM3 (4.5-11.0)
[2016-12-11 16:15] LABS: ANION GAP 15 MEQ/L (5-15); BUN/CREATININE RATIO 18 RATIO (6-26); CALCIUM 9.8 MG/DL (8.4-10.2); CHLORIDE 104 MEQ/L (98-107); CO2 - CARBON DIOXIDE 27 MEQ/L (22-30); CREATININE 0.9 MG/DL (0.7-1.2); GLOMERULAR FILTRATION RATE 76; GLUCOSE 99 MG/DL (65-110); POTASSIUM 4.3 MEQ/L (3.6-5); SODIUM 146 MEQ/L (134-144)
[2016-12-11] MEDS ORDERED: KETOROLAC 30mg/ml INJECTION IV PRN (16:30)
--- NOTE | 2016-12-11 16:40 | ANESPREOP ---
Anesthesia Record Date and Time DATE: 12/11/16 TIME: 16:38 Pre-Op Diagnosis Renal stone Proposed Surgical Procedure Cystoscopy, ureteroscopy NPO since: 0900 Allergies: Coded Allergies: sulfamethoxazole (Verified Allergy, Severe, RASH/HIVES, 12/11/16) trimethoprim (Verified Allergy, Severe, RASH/HIVES, 12/11/16) Ht/Wt/BMI Height: 5 ' 6.00 " Weight: 66.700 kg BMI: 23.7 kg/m2 Vital Signs Date Time Temp Pulse Resp B/P Pulse Ox O2 Delivery O2 Flow Rate FiO2 12/11/16 16:10 98.6 90 16 104/69 97 Room Air Medications Inpatient Medications Current Medications Medications (Trade) Dose Ordered Sig/Humera Start Time Stop Time Status Last Admin Dose Admin Lactated Ringer's (Lactated Ringers) 1,000 ml @ 100 mls/hr Q10H 12/11/16 16:15 12/11/16 15:52 100 MLS/HR Morphine Sulfate (Morphine) 1-3 MG Q1H PRN 12/11/16 16:15 12/11/16 16:03 3 MG Ketorolac Tromethamine (Toradol) 30 mg Q6H PRN 12/11/16 16:30 Nebivolol HCl (Bystolic) 2.5 Mg Tablet, 1 TAB PO DAILY, (Reported) Last Taken: on 12/10/16 0900 Pnv95/Ferrous Fumarate/FA ( Tablet) 1 Each Tablet, 1 TAB PO DAILY, (Reported) Last Taken: on 12/10/16 0830 Progesterone,Micronized (Prometrium) 200 Mg Capsule, 1 CAP PO, (Reported) TAKES FOR 5 NIGHTS NEEDED Last Taken: on 11/26/16 Currently on Beta Kenia: Yes Beta Kenia Last Taken: Bystolic Medical/Surgical History Anesthesia PMH: Reports: Valvular Disease (Aortic Stenosis), Denies: * Hypertension, *IN, Asthma, Blood Transfusion Reac, CHF, CVA/Stroke/TIA, Cancer, Seizures Smoking Status: Current every day smoker Has pt. smoked today?: No # of Packs per Day: 09/13 # of Years: 3 Use Chewing Tobacco?: No Second Hand Exposure: No Substance Use Type: does not use Alcohol Intake: none Past Surgical History Orthopedic Surgeries: No Abdominal Surgeries: No Genitourinary Surgeries: No Cardiac Surgeries: No Endocrine Surgeries: No Reproductive Surgeries: No Neurological Surgeries: No Ear Surgeries: No Nose Surgeries: No Throat Surgeries: Yes - TOSILECTOMY 10/05/16 Other Surgeries: No Anesthesia Adverse Reactions: FOUND none Family Hx of Anesthesia Advers: none Pertinent Findings Laboratory Tests 12/11/16 15:48 Test 12/11/16 15:48 Human Chorionic Gonadotropin, Qual Negative (NEGATIVE) EKG Rhythm: Sinus Rhythm Physical Exam Respiratory: Lungs clear Cardiovascular: FOUND Regular rate, rhythm Airway Assessment Mallampati Score: II TMD: 3 Fingerbreadths Neck Extension: Good Overall Assessment: No Airway Concerns ASA: 2 Plan Anesthesia Plan: GETA Discussion Discussed risks/options/alternatives of anesthesia and questions answered. Patient consents. Nursing pain assessment noted. Attestation Statement Prior to the delivery of any anesthetic medication, I examined the patient, developed the plan, obtained the patient's consent and discussed the risk and benefits of the procedure with the patient/guardian. OSMAR ROMERO GAME ATTENDANT Dec 11, 2016 16:40
[2016-12-11] MEDS ORDERED: IOHEXOL 300 MG/ML 50ml INJECTION ONE (17:12)
[2016-12-11] MEDS ORDERED: GENTAMICIN 80 MG/2 ML INJECTION ONE (17:12)
[2016-12-11] MEDS ORDERED: LEVOFLOXACIN IV ONE (18:00)
[2016-12-11] MEDS ORDERED: D5W IV ONE (18:00)
[2016-12-11] MEDS ORDERED: PROPOFOL 200mg 20 ML IV ONE (18:37)
--- NOTE | 2016-12-11 18:47 | NUR ---
SURGERY PT TO OR PER OR CART. MOTHER ATTENDING.
[2016-12-11] MEDS ORDERED: FENTANYL 100mcg/2ml INJECTION ONE (19:02)
[2016-12-11] MEDS ORDERED: ONDANSETRON 4mg/2ml INJECTION ONE (19:06)
[2016-12-11] MEDS ORDERED: DEXAMETHASONE 4mg/ml - 1ml INJECTION ONE (19:06)
[2016-12-11] MEDS ORDERED: NORMAL SALINE 1,000 ML IV SCH (19:19)
[2016-12-11] MEDS ORDERED: ONDANSETRON 4mg/2ml INJECTION IV PRN (19:30)
[2016-12-11] MEDS ORDERED: HYDROCODONE/APAP 5 mg/325 mg TABLET PO PRN (19:30)
[2016-12-11] MEDS ORDERED: KETOROLAC 15mg/ml INJECTION IV PRN (19:30)
[2016-12-11] MEDS ORDERED: METOCLOPRAMIDE 10mg/2ml INJECTION IV PRN (19:30)
[2016-12-11] MEDS ORDERED: HYDROMORPHONE 2mg/ml INJECTION IV PRN (19:30)
[2016-12-11] MEDS ORDERED: HYDR-4246 PO (19:34)
[2016-12-11] MEDS ORDERED: ONDA4TAB10 PO (19:34)
--- NOTE | 2016-12-11 19:35 | ANESPO ---
Post-Op Note Date 12/11/16 Time: 19:34 Status Pt Participated in Evaluation: Pt participated in person Vital Signs Date Time Temp Pulse Resp B/P Pulse Ox O2 Delivery O2 Flow Rate FiO2 12/11/16 17:55 16 12/11/16 16:10 98.6 90 104/69 97 Room Air Respiratory Function: Airway patent Cardiovascular Function: Regular pulse Telemetry Pattern: SR Mental Status: Alert/oriented Pain Level Intensity: 10 (Pain meds ordered) Hydration: IV infusing, Nausea (Treated) Complications during Recovery None apparent Follow-Up Instructions Instructions Per Surgeon OSMAR ROMERO JEWISH HISTORY PROFESSOR Dec 11, 2016 19:35
[2016-12-11] MEDS ORDERED: KETOROLAC 30mg/ml INJECTION IV ONE (19:45)
--- NOTE | 2016-12-11 19:50 | NUR ---
PACU RECEIVED REPORT FROM AJIT IN PACU. PT TO RETURN TO THE ROOM IN APPROXIMATELY 10 MIN WITH INSTRUCTIONS TO DISCHARGE IF PATIENT WOULD LIKE TO
--- NOTE | 2016-12-11 20:00 | NUR ---
RETURN PT RETURNED TO ROOM FROM SURGERY VIA CART, TRANSFERRED TO BED ON HER OWN. POST OP VITALS STARTED AT THIS TIME, FAMILY AT BEDSIDE. WILL CONTINUE TO MONITOR.
--- NOTE | 2016-12-11 20:15 | NUR ---
DR CONTACTED DR HUI NOTIFIED THAT PATIENT WOULD LIKE TO DISCHARGE THIS EVENING, NO NEW MEDICATIONS SENT OVER. DR STATED THAT HE PRINTED THEM OUT BUT FORGOT TO SIGN AND SEND THEM OVER WITH HER. DR HUI CONTACTED DR ARGUETA IN THE ER TO WRITE OUT PRESCRIPTIONS FOR PRN PAIN MEDICATION AND ZOFRAN. TRUCK BODY BUILDER APPRENTICE BROUGHT THEM OVER.
--- NOTE | 2016-12-11 21:30 | NUR ---
MEDICATION PT GIVEN PRESCRIPTIONS TO TAKE OVER TO [facility] TO BE FILLED. Addendum: 12/11/16 at 2209 by STELLA CARRASQUILLO RN CORRECT TIME FOR THIS WAS 2030
--- NOTE | 2016-12-11 21:32 | NUR ---
DISCHARGE PT VITAL SIGNS STABLE ON ROOM AIR, PRN DOSE OF PAIN MEDICATION GIVEN PRIOR TO DISCHARGE.PT DENIES NAUSEA AND VOMITING AT THIS TIME. PT COLLECTED BELONGINGS. DISCHARGE INFORMATION GIVEN: MEDICATION TO START, SIGNS AND SYMPTOMS TO EXPECT AND TO REPORT. PT TO FOLLOW UP WITH PRIMARY CARE PHYSICIAN IF PAIN PERSISTS. PT IV DISCONTINUED AT THIS TIME, CATHETER TIP INTACT. PT AMBULATED TO THE ER EXIT.
--- NOTE | 2016-12-12 10:30 | OPNOTEF ---
DATE OF OPERATION 12/11/2016 PREOPERATIVE DIAGNOSIS Right renal colic, recent history of microscopic hematuria, and evidence of dilated ureter on CT scan. POSTOPERATIVE DIAGNOSIS Right renal colic, recent history of microscopic hematuria, and evidence of dilated ureter on CT scan. 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 OPERATION PERFORMED Cystoscopy and bilateral retrograde pyelograms. SURGEON Sid Streeter MD ANESTHESIA TIVA. INDICATIONS Richard is a 26-year-old woman with a three-week history of severe right flank pain with nausea. She was in the emergency room twice over this time for evaluation and also a visit to her PCP, Dr. Berman. On her visit to Dr. Berman, she showed significant microscopic hematuria. One of the CT scans showed evidence of dilated ureter but repeat CT scan showed normal upper track without evidence of hydronephrosis. 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 Because of persistence of pain and nausea, the patient was brought in to evaluate for any evidence of obstruction and possible stent insertion with ureteroscopy for diagnostic purpose. DESCRIPTION OF PROCEDURE Patient was taken to the cystoscopy suite and under intravenous anesthesia she was placed in the dorsal lithotomy position and prepped and draped in the usual fashion for cystoscopy. A 21-German cystoscope was inserted into the bladder and the bladder was thoroughly inspected. Bladder showed moderate trabeculation but no tumor, foreign body, or stone. Ureteral orifices are normal in contour with a slight, minimal medial deviation of the left ureter. There was no duplicated ureteral orifice. Audit Lead films were captured with fluoroscopy and the entire abdomen. Right ureteral orifice was then cannulated with a 5-German open-ended ureteral catheter and under fluoroscopy retrograde pyelogram was taken by injected contrast mixed with gentamicin. Rrts images were captured, and it showed partially duplicated ureter merging just about the ureterovesical junction. Both ureters were normal without evidence of obstruction or filling defect. There is no evidence of stone. Ureters appear somewhat larger in caliber, but they peristalsis normally and empty the kidney promptly. Left retrograde pyelogram was taken similarly and found no abnormalities. No evidence of hydronephrosis, filling defect, or obstruction. Left kidney emptied out promptly as well. Therefore, bladder was emptied out and no further procedure was attempted. Patient was then taken to the recovery room in stable condition. LUCERO
--- NOTE | 2016-12-13 10:44 | DI ---
Indication: ITS.REASON: BILAT RETROGRADES PROCEDURE: RF RETROGRADE PYELOGRAM BILAT.: Encounter: Initial Comparison: None Findings: 19 fluoroscopic spot images are submitted for interpretation. Images show retrograde injection of contrast into both renal collecting systems. No filling defect or hydronephrosis on the left. Right sided calyces are moderately blunted with evidence of a duplicated collecting system and two right ureters which fuse distally. No obvious ureteral filling defects. Impression: Fluoroscopy as above. Duplicated right collecting system with hydronephrosis, greater in the lower pole moiety. Fluoroscopy time is 157.6 seconds. Fluoroscopy dose is 3020 mRad. .
== END 2016-12-11 21:32 | disposition home or self-care (01) ==
LOC: SRG 15:18 → SCU 15:18
PROVIDERS: ATTEND Specialist
DX: Q62.5 Duplication of ureter (principal); N28.82 Megaloureter; R31.29 Other microscopic hematuria; N13.30 Unspecified hydronephrosis; Z79.899 Other long term (current) drug therapy; Z87.440 Personal history of urinary (tract) infections; N97.9 Female infertility, unspecified; F41.1 Generalized anxiety disorder; G47.30 Sleep apnea, unspecified
CPT/HCPCS: 36415; 52005; 74420; 80048; 84703; 85025; J1100; J1580; J1885; J2405; J2704; J3010; J7030; J7120; Q9967